=== PATIENT | female | born 1970 | race Caucasian/White ===

== ENCOUNTER 2024-02-25 08:14 | Outpatient (AMB) | payer OTHER, SELFPAY ==
[2024-02-25 08:22] VITALS: BP 108/72; PULSE 92; O2SAT 98; BMI 32.1
--- NOTE | 2024-02-25 08:22 | A.OFFPC_ITS ---
Vital Signs 02/25/24 08:22 Height 5 ft 5 in Weight 193 lb BMI 32.1 BP 108/72 Blood Pressure Location Lt brachial Position Sitting Pulse 92 Pulse Source Pulse Oximeter Pulse Oximetry (%) 98 Oxygen Delivery Method Room Air Intake Visit Reasons: annual exam Allergies sulfamethoxazole [From Bactrim] Adverse Reaction (Severe, Verified 02/25/24 08:38) Diarrhea trimethoprim [From Bactrim] Adverse Reaction (Severe, Verified 02/25/24 08:38) Diarrhea Medication List - Last Reconciled 02/25/24 by Nikunj Patel PA-C albuterol sulfate 2.5 mg inhalation Q6H albuterol sulfate 90 mcg/actuation (ProAir HFA) 2 puffs inhalation Q6H PRN 90 days atomoxetine 100 mg PO DAILY bupropion HCl XL 450 mg (3 x 150 mg) PO DAILY cetirizine 10 mg PO DAILY dextroamphetamine-amphetamine 25 mg ER (Adderall XR) 25 mg PO DAILY fluticasone propion-salmeterol 250-50 mcg/dose (Advair Diskus) 1 inh inhalation BID 30 days ibuprofen 800 mg PO TID PRN 30 days lorazepam 1 mg PO DAILY PRN 30 days montelukast 10 mg PO BEDTIME naproxen 500 mg PO BID PRN 10 days trazodone 100 mg PO BEDTIME PRN Tobacco use date assessed: 02/25/24 Dental Screening Dental Screen Date: 02/25/24 Did you have a dental visit in the last 12 months?: No Did you have a dental problem in the last 6 months where you did not have access to dental care?: No Was dental information given to patient?: Patient has dentist HPI annual exam HPI Details Trinity is a 54 y /o F here today for an annual physical. ? Pmhx significant for Depression, HTN, Anxiety, HLD. ? .. ? Depression/ Anxiety: She recently had some worsening depression and suicidal ideation to which he was hospitalized and had some med changes. She is in an IOP program to which she receives therapy on a daily basis. Now has a Also doing TMS and helping with her mental health. She is also now on Adderall for an ADHD diagnoses which has been helping her with her attention and focus. She mentioned she does not want to be on this medication for long-term due to risk of dependency ? REport her anxiety is still about the same, using lorazepam on a PRN basis though is looking to get off this medication .. HLD: Was on statin therapy previously though has ran out of this medication. She has lost significant amount of weight and will like to recheck her fasting lipids to see if there is still need for cholesterol medication. Colonoscopy: Needs colonoscopy- willing to go to [facility] Vaccine: UTD with FLu ,. UTD with Tdap ( 2022) .. 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 Medical History Screening for hypercholesterolemia Surgical History History of tonsillectomy History of foot surgery Family History Mother Substance use disorder Breast cancer Father Kidney malignancy Social History (Updated 02/25/24 @ 08:48 by Nikunj Patel PA-C) Housing: House Alcohol intake: current Patient Tobacco Use Status: Never used Tobacco Tobacco use type: Cigarette e-Cigarette/Vaping Use: Never Used Second Hand Smoke Exposure: No service: No Current occupational status: unemployed and retired Current occupational exposures/hazards: No Cognitive needs: No Hearing needs: No Vision needs: Yes Questionnaire PHQ-9 Over the last 2 weeks, how often have you been bothered by any of the following problems? 1. Little interest or pleasure in doing things: more than half the days 2. Feeling down, depressed, or hopeless: more than half the days 3. Trouble falling or staying asleep, or sleeping too much: not at all 4. Feeling tired or having little energy: more than half the days 5. Poor appetite or overeating: not at all 6. Feeling bad about yourself - or that you are a failure or have let yourself or your family down: more than half the days 7. Trouble concentrating on things, such as reading the newspaper or watching television: not at all 8. Moving or speaking so slowly that other people could have noticed. Or the opposite - being so fidgety or restless that you have been moving around a lot more than usual: not at all 9. Thoughts that you would be better off or of hurting yourself in some way: not at all Total score: 8 Depression Screening Interpretation: Positive Depression Screening Follow-up: Existing condition and In treatment Depression Screening Done: Yes 72709 - PHQ-9 Billing: Yes Source: Developed by Drs. Jak Posey, María Barron, Marino Gonzalez and colleagues, with an educational emmanuel from [employer]. Thrive Questionnaire Date Thrive assessed: 02/25/24 I am a: Patient What is your living situation today?: I have a steady place to live Within the past 12 months, did the food you bought not last and you didn't have the money to get more?: Never true Within the past 12 months, did you worry whether your food would run out before you got money to buy more?: Never true Do you have trouble paying for medicines?: No Do you have trouble getting transportation to medical appointments?: No Do you have trouble paying your heating and electricity bill?: No Do you have trouble taking care of your child, family member or friend?: No Do you have trouble with day-to-day activities such as bathing, preparing meals, shopping, managing finances, etc.?: No Are you currently unemployed and looking for a job?: No Are you interested in more education?: No Currently or been in a relationship where the following occur: No concerns reported THRIVE Score: 0 AUDIT C Alcohol Use Questionnaire (AUDIT-C) 1. How often do you have a drink containing alcohol?: 2-4 times a month 2. How many drinks containing alcohol do you have on a typical day when you are drinking?: 1 or 2 3. How often do you have six or more drinks on one occasion?: Never Total Score: 2 Score Reviewed/Action Taken: Yes NYDIA-7 AMB Questionnaire NYDIA-7 Date NYDIA - 7 assessed: 02/25/24 Feeling nervous, anxious, or on edge: 3 = Nearly every day Not being able to stop or control worryin = Nearly every day Worrying too much about different things: 3 = Nearly every day Trouble relaxin = Nearly every day Being so restless that it is hard to sit still: 3 = Nearly every day Becoming easily annoyed or irritable: 3 = Nearly every day Feeling afraid as if something awful might happen: 3 = Nearly every day Total NYDIA-7 score (0-4 normal; 5-9 mild; 10-14 moderate; 15-21 severe): 21 Source: Developed by Drs. Jak Posey, María Barron, Marino Gonzalez and colleagues, with an educational emmanuel from [employer]. NYDIA-7 Assessment Billing NYDIA-7 Assessment Tool: NYDIA-7 Assessment 60648 ACT Questionnaire In the past 4 weeks, how much of the time did your asthma keep you from getting as much done at work, school or at home?: A little of the time During the past 4 weeks, how often have you had shortness of breath?: Not at all During the past 4 weeks, how often did your asthma symptoms wake you up at night or earlier than usual in the morning?: Not at all During the past 4 weeks, how often have you had to use your rescue inhaler or nebulizer medication?: Once a week or less How would you rate your asthma control during the past 4 weeks?: Completely controlled ACT Interpretation: Negative Score: 23 Review of Systems Const Denies body aches, Denies chills, Denies excessive sweating, Denies fatigue, Denies fever(s) and Denies headache(s) Eyes Denies blurry vision ENT Denies dysphagia, Denies vertigo, Denies dizziness, Denies headache(s), Denies hearing loss and Denies tinnitus Card Denies chest pain, Denies chest pain with activity, Denies syncope, Denies irregular heart rhythm and Denies dyspnea Resp Denies chest congestion, Denies cough, Denies hemoptysis, Denies dyspnea and Denies wheezing GI Denies abdominal pain, Denies melena, Denies hematochezia, Denies coffee ground emesis, Denies dysphagia, Denies diarrhea, Denies nausea and Denies vomiting Denies urinary frequency, Denies dysuria, Denies urinary hesitancy and Denies urinary urgency Musc Denies arthralgias, Denies limited range of motion, Denies muscle cramps and Denies muscle weakness Skin/Breast Denies rash and Denies skin ulcer Neuro Denies Abnormal speech present, Denies confusion, Denies vertigo, Denies dizziness, Denies syncope, Denies headache(s), Denies memory loss and Denies seizure-like activity Psych Denies anxiety, Denies confusion, Denies depression, Denies memory loss, Denies panic attacks and Denies paranoia Endo Denies excessive sweating, Denies fatigue, Denies flushing, Denies polydipsia and Denies polyuria Aller/Immun Denies wheezing Physical exam (Primary Care) Vital Signs: Last Vital Signs Pulse 92 02/25/24 08:22 BP 108/72 02/25/24 08:22 Pulse Ox 98 02/25/24 08:22 Oxygen Delivery Method Room Air 02/25/24 08:22 BMI result Body Mass Index 32.1 Tobacco/Smoking Status: Tobacco use Status Tobacco use date assessed 02/25/24 02/25/24 08:27 Patient Tobacco Use Status Never used Tobacco 02/25/24 08:48 Tobacco use type Cigarette 02/25/24 08:48 e-Cigarette/Vaping Use Never Used 02/25/24 08:48 PHQ-9: PHQ-9 Score PHQ-9: Total score 8 02/25/24 09:07 Depression Screening Interpretation: Positive Depression Screening Follow-up: Existing condition and In treatment Thrive Assessment: Date of Thrive Assessment Date Thrive assessed 02/25/24 02/25/24 08:27 Currently or been in a relationship where the following occur: No concerns reported Const General: cooperative, comfortable, no acute distress, alert and awake; No confusion Orientation/consciousness: oriented to person, oriented to place, patient oriented x3 and No confusion HENMT Head: Yes normocephalic Ears: external ears normal and TM's normal bilaterally Face and sinus: No sinus tenderness Mouth: Normal oral and palatal mucosa present and tongue normal Teeth and gingiva: dentition normal and gingiva normal Throat: Yes posterior oropharynx normal, Yes tonsils normal and Yes uvula mi dline Eyes Conjunctivae: conjunctivae normal Sclerae: sclerae normal Pupils: Equal, round and reactive pupils present EOM: EOMs intact bilaterally Direct Ophthalmoscopy: No no photophobia Neck Neck: Yes no lymphadenopathy, No tender and Yes no JVD Thyroid: Thyroid normal Carotids: no bruits Chest Chest palpation & inspection: no tenderness Resp Effort & Inspection: normal respiratory effort, no audible wheezes, not labored and no stridor Auscultation: no crackles, no rales, no rhonchi and no wheezes Cardio Jugular venous distension: no JVD Rate: regular rate, not bradycardic and not tachycardic Rhythm: regular rhythm Bruits: no carotid bruits Peripheral pulses: Peripheral pulses 2+ throughout GI Inspection: Yes normal to inspection, No abdominal wall ecchymosis and No visible herniation Palpation (GI): Soft to palpation, nontender, no guarding, not rigid and No hepatosplenomegaly present Auscultation: normoactive bowel sounds General: Yes no CVA tenderness Back/Spine/Pelvis Back: no CVA tenderness and No back tenderness Cervical Spine: cervical ROM normal Thoracic/Lumbar Spine: thoracic and lumbar spine normal to inspection, straight leg raise negative bilaterally, No thoraco-lumbar ROM limited and No lumbar spinal tenderness Skin Lesions: no lesions Rashes: no rashes Wounds: no wounds Neuro General: oriented to person, oriented to place, patient oriented x3, CN's II-XI intact bilaterally and No confusion Cranial nerves: Yes Equal, round and reactive pupils present and Yes Normal accommodation reflex present Cognition (Neuro): normal cognition Speech: No Abnormal speech present Gait exam (Neuro): Normal gait present Motor exam (neuro): 5/5 motor strength present throughout Extrem Right upper extremity: full ROM; no cyanosis Left upper extremity: full ROM; no cyanosis Right lower extremity: no edema Left lower extremity: no edema Psych Appearance: grossly normal Mental Status: mental status grossly normal Affect: normal affect Attitude: cooperative Thought process: Normal thought process present Results AMB Urinalysis, Automated UA Leukoctes 1 Adan/uL Last Edit by BHARGAV Rice on 02/25/24 09:10 UA Nitrite Negative Last Edit by BHARGAV Rice on 02/25/24 09:10 UA Urobilinogen 0.2 mg/dL Last Edit by BHARGAV Rice on 02/25/24 09: 10 UA Protein 0 mg/dL Last Edit by BHARGAV Rice on 02/25/24 09:10 UA pH 6.0 Last Edit by BHARGAV Rice on 02/25/24 09:10 UA Blood 0 Tay/uL Last Edit by BHARGAV Rice on 02/25/24 09:10 UA Specific [place] 1.020 Last Edit by BHARGAV Rice on 02/25/24 09 :10 UA Ketone Negative Last Edit by BHARGAV Rice on 02/25/24 09:10 UA Bilirubin 0 mg/dL Last Edit by BHARGAV Rice on 02/25/24 09:10 UA Glucose 0 mg/dL Last Edit by BHARGAV Rice on 02/25/24 09:10 Results Reviewed Results Reviewed: Laboratory Last Values Urine pH (Auto) 6.0 02/25/24 08:27 Specific [place] (Auto) 1.020 02/25/24 08:27 Urine Protein (Auto) 0 mg/dL 02/25/24 08:27 Glucose (UA)(Auto) 0 mg/dL 02/25/24 08:27 Urine Ketones (Auto) Negative 02/25/24 08:27 Urine Blood (Auto) 0 Tay/uL 02/25/24 08:27 Urine Nitrite (Auto) Negative 02/25/24 08:27 Urine Bilirubin (Auto) 0 mg/dL 02/25/24 08:27 Urine Urobilinogen (Auto) 0.2 mg/dL 02/25/24 08:27 Leukocyte Esterase (Auto) 1 Adan/uL 02/25/24 08:27 Coding Level of Care Code Est Pt Prev Care 40-64y(86766) Diagnoses Annual physical exam Z00.00 Mixed hyperlipidemia E78.2 Hyperlipidemia type: mixed hyperlipidemia Mild persistent asthma without complication J45.30 Asthma complication type: uncomplicated Asthma persistence: persistent Asthma severity: mild Screening for diabetes mellitus (DM) Z13.1 Attention deficit hyperactivity disorder (ADHD), combined type F90.2 Attention deficit-hyperactivity disorder type: combined inattentive- hyperactive NYDIA (generalized anxiety disorder) F41.1 Additional Codes NYDIA-7 Assessment Billing - NYDIA-7 Assessment Tool: NYDIA-7 Assessment 19481 ([id number]) PHQ-9 - 64614 - PHQ-9 Billing: Yes ([id number]) Asthma Control Questionnaire - ACT Interpretation: Negative ([id number]) Assessment & Plan Assessment & Plan (1) Annual physical exam: Code(s): Z00.00 - Encounter for general adult medical examination without abnormal findings Category: Medical Plan: As per HPI (2) HLD (hyperlipidemia): Code(s): E78.5 - Hyperlipidemia, unspecified Category: Medical Qualifiers: Hyperlipidemia type: mixed hyperlipidemia Qualified Code(s): E78.2 - Mixed hyperlipidemia Plan: Patient has a history hyperlipidemia. Has been out of cholesterol medication for quite some time now. She has lost significant amount of weight since changing mental health medications and being retired. Will recheck lipid panel and if LDL 160 will consider restarting cholesterol medication. (3) Asthma: Code(s): J45.909 - Unspecified asthma, uncomplicated Category: Medical Qualifiers: Asthma complication type: uncomplicated Asthma persistence: persistent Asthma severity: mild Qualified Code(s): J45.30 - Mild persistent asthma, uncomplicated Plan: Patient has moderate persistent asthma to which she was using a maintenance inhaler though has been out of this medication for quite some time. Did have a bout of asthma that lasted a few weeks and required steroids and antibiotics (4) Screening for diabetes mellitus (DM): Code(s): Z13.1 - Encounter for screening for diabetes mellitus Category: Medical Plan: As per HPI (5) ADHD: Code(s): F90.9 - Attention-deficit hyperactivity disorder, unspecified type Category: Medical Qualifiers: Attention deficit-hyperactivity disorder type: combined inattentive- hyperactive Qualified Code(s): F90.2 - Attention-deficit hyperactivity disorder, combined type Plan: As per HPI patient now seeing a psychiatrist in his in an IOP. She has been chichi gnosed with ADHD and started stimulant medication which has been helping her with her attention and focus. (6) NYDIA (generalized anxiety disorder): Code(s): F41.1 - Generalized anxiety disorder Category: Medical Plan: As per HPI patient continues to have anxiety though has been much better since starting a new medication. Only uses lorazepam on a very limited p.r.n. basis Orders: Orders AMB Urinalysis Automated Today R39.9 - Unspecified symptoms and signs involving the genitourinary system Comprehensive [place]. Panel Fast Today Z13.1 - Encounter for screening for diabetes mellitus Lipid Panel Today E78.2 - Mixed hyperlipidemia TSH reflex Free T4 Today E78.2 - Mixed hyperlipidemia Complete Blood Count no Diff Today K21.9 - Gastro-esophageal reflux disease without esophagitis Medications: New albuterol sulfate 90 mcg/actuation (Ventolin HFA) 1 puff inhalation QID 3 inhalers 2RF 90 days J45.30 - Mild persistent asthma, uncomplicated amoxicillin-pot clavulanate 875-125 mg 1 tab PO BID 20 tabs 0RF 10 days J45.30 - Mild persistent asthma, uncomplicated prednisone take 3 tabs x 3 days , take 2 tabs x 3 days , take 1 tab x 3 days 10 mg PO DIRECTED 18 tabs 0RF 9 days J45.30 - Mild persistent asthma, uncomplicated Changed From fluticasone propion-salmeterol 250-50 mcg/dose (Advair Diskus) 1 inh inhalation BID 30 days 60 ea 0RF J45.909 - Unspecified asthma, uncomplicated To fluticasone propion-salmeterol 250-50 mcg/dose (Advair Diskus) 1 inh inhalation BID 3 inhalers 3RF 90 days J45.909 - Unspecified asthma, uncomplicated From albuterol sulfate 2.5 mg inhalation Q6H J45.30 - Mild persistent asthma, uncomplicated To albuterol sulfate 2.5 mg (3 mL) inhalation Q6H PRN 180 mL 2RF shortness of breath or wheezing 90 days J45.30 - Mild persistent asthma, uncomplicated Refilled montelukast 10 mg PO BEDTIME 90 tabs 3RF J45.30 - Mild persistent asthma, uncomplicated Discontinued albuterol sulfate 90 mcg/actuation (ProAir HFA) Discontinued Reason: Doctor's Order 2 puffs inhalation Q6H 90 days PRN 3 inhalers 0RF shortness of breath or wheezing J45.30 - Mild persistent asthma, uncomplicated
--- OUTSIDE RECORDS SUMMARY | 2024-02-25 08:22 | XMS_ITS | Continuity of Care Document ---
Author Name [facility] Organization [facility] Care Team Providers Care Retail Marketing Manager Name Role Phone [facility] Unavailable Unavailable Medications Combined list of outpatient medications from Department of Defense and [facility] Affairs facilities.Medications provided include 1) outpatient medications from the last 15 months, and 2) patient-reported medications. Medication Details Route Status Patient Instructions Prescription Expires Prescription Number Last Dispense Date Ordering Provider Order Date Order Qty Source AMPHETAMINE SALT COMBO (DEXTROAMPH ETAMINE/AMP HETAMINE), 10 MG, TABLET, ORAL, MALLINCKROD T PH, 100 ea. BOTTLE Active [id number] 2023 60 Pharmac y Data Transac tion Service Facilit y AMPHETAMINE SALT COMBO (DEXTROAMPH ETAMINE/AMP HETAMINE), 10 MG, TABLET, ORAL, MALLINCKROD T PH, 100 ea. BOTTLE Cancele d [id number] : 2023 0 Pharmac y Data Transac tion Service Facilit y AMPHETAMINE SALT COMBO (DEXTROAMPH ETAMINE/AMP HETAMINE), 10 MG, TABLET, ORAL, [place], 100 ea. BOTTLE Cancele d [id number] : 2023 0 Pharmac y Data Transac tion Service Facilit y AMPHETAMINE SALT COMBO (DEXTROAMPH ETAMINE/AMP HETAMINE), 10 MG, TABLET, ORAL, [place]EVA [place], 100 ea. BOTTLE Active [id number] 4 2023 90 Pharmac y Data Transac tion Service Facilit y AMPHETAMINE SALT COMBO (DEXTROAMPH ETAMINE/AMP HETAMINE), 10 MG, TABLET, ORAL, [place]EVA [place], 100 ea. BOTTLE Active [id number] 4 2023 75 Pharmac y Data Transac tion Service Facilit y AMPHETAMINE SALT COMBO (DEXTROAMPH ETAMINE/AMP HETAMINE), 10 MG, TABLET, ORAL, [place]EVA [place], 100 ea. BOTTLE Cancele d [id number] : 2023 0 Pharmac y Data Transac tion Service Facilit y AMPHETAMINE SALT COMBO (DEXTROAMPH ETAMINE/AMP HETAMINE), 10 MG, TABLET, ORAL, [place]EVA [place], 100 ea. BOTTLE Active [id number] 2023 75 Pharmac y Data Transac tion Service Facilit y AMPHETAMINE SALT COMBO (DEXTROAMPH ETAMINE/AMP HETAMINE), 10 MG, TABLET, ORAL, [place]A [place], 100 ea. BOTTLE Cancele d [id number] : 2023 0 Pharmac y Data Transac tion Service Facilit y AMPHETAMINE SALT COMBO (DEXTROAMPH ETAMINE/AMP HETAMINE), 5 MG, TABLET, ORAL, EW[place], 100 ea. BOTTLE Cancele d [id number] : 2023 0 Pharmac y Data Transac tion Service Facilit y ATOMOXETINE HCL (atomoxetin e HCl), 100 MG, CAPSULE, ORAL, BUREL PHARMACEU, 30 ea. BOTTLE Cancele d [id number] 4 [id number] : 2023 0 Pharmac y Data Transac tion Service Facilit y ATOMOXETINE HCL (atomoxetin e HCl), 100 MG, CAPSULE, ORAL, CAMBER PHARMACE, 30 ea. BOTTLE Cancele d [id number] : 2023 0 Pharmac y Data Transac tion Service Facilit y ATOMOXETINE HCL (atomoxetin e HCl), 100 MG, CAPSULE, ORAL, CAMBER PHARMACE, 30 ea. BOTTLE Active [id number] 2023 30 Pharmac y Data Transac tion Service Facilit y ATOMOXETINE HCL (atomoxetin e HCl), 100 MG, CAPSULE, ORAL, CAMBER PHARMACE, 30 ea. BOTTLE Active [id number] 2023 30 Pharmac y Data Transac tion Service Facilit y ATOMOXETINE HCL (atomoxetin e HCl), 100 MG, CAPSULE, ORAL, CAMBER PHARMACE, 30 ea. BOTTLE Active [id number] 2023 30 Pharmac y Data Transac tion Service Facilit y ATOMOXETINE HCL (atomoxetin e HCl), 100 MG, CAPSULE, ORAL, CAMBER PHARMACE, 30 ea. BOTTLE Active [id number] 4 2023 30 Pharmac y Data Transac tion Service Facilit y ATOMOXETINE HCL (atomoxetin e HCl), 100 MG, CAPSULE, ORAL, CAMBER PHARMACE, 30 ea. BOTTLE Active [id number] 2023 30 Pharmac y Data Transac tion Service Facilit y ATOMOXETINE HCL (atomoxetin e HCl), 100 MG, CAPSULE, ORAL, 'S LAB, 30 ea. BOTTLE Cancele d [id number] : 2022 0 Pharmac y Data Transac tion Service Facilit y ATOMOXETINE HCL (atomoxetin e HCl), 100 MG, CAPSULE, ORAL, RISING PHARM, 30 ea. BOTTLE Cancele d [id number] : 2023 0 Pharmac y Data Transac tion Service Facilit y BUPROPION XL (bupropion HCl), 150 MG, TAB ER 24H, ORAL, [facility], 90 ea. BOTTLE Active [id number] 4 2023 60 Pharmac y Data Transac tion Service Facilit y BUPROPION XL (bupropion HCl), 150 MG, TAB ER 24H, ORAL, [facility], 90 ea. BOTTLE Cancele d [id number] : 2023 0 Pharmac y Data Transac tion Service Facilit y BUPROPION XL (bupropion HCl), 150 MG, TAB ER 24H, ORAL, [facility], 90 ea. BOTTLE Active [id number] 2023 60 Pharmac y Data Transac tion Service Facilit y BUPROPION XL (bupropion HCl), 150 MG, TAB ER 24H, ORAL, CIPLA [employer] 500 ea. BOTTLE Cancele d [id number] : 2022 0 Pharmac y Data Transac tion Service Facilit y BUPROPION XL (bupropion HCl), 150 MG, TAB ER 24H, ORAL, LUPIN PHARMACEU, 90 ea. BOTTLE Active [id number] 2023 60 Pharmac y Data Transac tion Service Facilit y BUPROPION XL (bupropion HCl), 150 MG, TAB ER 24H, ORAL, LUPIN PHARMACEU, 90 ea. BOTTLE Cancele d [id number] : 2023 0 Pharmac y Data Transac tion Service Facilit y BUPROPION XL (bupropion HCl), 150 MG, TAB ER 24H, ORAL, LUPIN PHARMACEU, 90 ea. BOTTLE Cancele d [id number] : 2023 0 Pharmac y Data Transac tion Service Facilit y BUPROPION XL (bupropion HCl), 150 MG, TAB ER 24H, ORAL, LUPIN PHARMACEU, 90 ea. BOTTLE Active [id number] 2023 60 Pharmac y Data Transac tion Service Facilit y BUPROPION XL (bupropion HCl), 150 MG, TAB ER 24H, ORAL, LUPIN PHARMACEU, 90 ea. BOTTLE Cancele d [id number] : 2023 0 Pharmac y Data Transac tion Service Facilit y BUPROPION XL (bupropion HCl), 150 MG, TAB ER 24H, ORAL, LUPIN PHARMACEU, 90 ea. BOTTLE Active [id number] 2023 60 Pharmac y Data Transac tion Service Facilit y BUPROPION XL (bupropion HCl), 150 MG, TAB ER 24H, ORAL, LUPIN PHARMACEU, 90 ea. BOTTLE Active [id number] 4 2023 60 Pharmac y Data Transac tion Service Facilit y BUPROPION XL (bupropion HCl), 150 MG, TAB ER 24H, ORAL, [place] PHA, 500 ea. BOTTLE Active [id number] 2023 60 Pharmac y Data Transac tion Service Facilit y LORAZEPAM (lorazepam) , 0.5 MG, TABLET, ORAL, AUROBINDO PHARM, 500 ea. BOTTLE Active [id number] 2023 30 Pharmac y Data Transac tion Service Facilit y LORAZEPAM (lorazepam) , 0.5 MG, TABLET, ORAL, AUROBINDO PHARM, 500 ea. BOTTLE Active [id number] 2023 30 Pharmac y Data Transac tion Service Facilit y LORAZEPAM (lorazepam) , 0.5 MG, TABLET, ORAL, [place]EVA [place], 500 ea. BOTTLE Cancele d [id number] : 2023 0 Pharmac y Data Transac tion Service Facilit y TRAZODONE HCL (trazodone HCl), 100 MG, TABLET, ORAL, AUROBINDO PHARM, 100 ea. BOTTLE Active [id number] 4 2023 60 Pharmac y Data Transac tion Service Facilit y TRAZODONE HCL (trazodone HCl), 100 MG, TABLET, ORAL, AUROBINDO PHARM, 100 ea. BOTTLE Cancele d [id number] : 2023 0 Pharmac y Data Transac tion Service Facilit y TRAZODONE HCL (trazodone HCl), 100 MG, TABLET, ORAL, AUROBINDO PHARM, 100 ea. BOTTLE Active [id number] 2023 60 Pharmac y Data Transac tion Service Facilit y TRAZODONE HCL (trazodone HCl), 100 MG, TABLET, ORAL, AUROBINDO PHARM, 100 ea. BOTTLE Cancele d [id number] : 2023 0 Pharmac y Data Transac tion Service Facilit y TRAZODONE HCL (trazodone HCl), 100 MG, TABLET, ORAL, AUROBINDO PHARM, 100 ea. BOTTLE Active [id number] 2023 60 Pharmac y Data Transac tion Service Facilit y TRAZODONE HCL (trazodone HCl), 100 MG, TABLET, ORAL, AUROBINDO PHARM, 100 ea. BOTTLE Active [id number] 4 2023 60 Pharmac y Data Transac tion Service Facilit y TRAZODONE HCL (trazodone HCl), 100 MG, TABLET, ORAL, [place]EVA [place], 100 ea. BOTTLE Cancele d [id number] : 2022 0 Pharmac y Data Transac tion Service Facilit y TRAZODONE HCL (TRAZODONE HCL), 100MG, TABLET, ORAL, APOTEX SYLVIA, 100 ea. BOTTLE Active [id number] 4 2023 60 Pharmac y Data Transac tion Service Facilit y Allergies, Adverse Reactions, Alerts Combined list of allergies from Department of Defense and Veterans Affairs facilities. It does not include entries that were removed or entered in error. Substance Category Reaction Severity Reaction type Status Date Reported Comments Source No Known Allergies Drug allergy (disorder) [place] [facility] [place] of available immunizations from the Department of Defense and Veterans Affairs facilities. Immunization Series Date Given Administered By Site Reaction Lot Number CVX Code Drug Utility Tender Carding Status Comments Source COVID-19, mRNA, LNP-S, PF, 100 mcg or 50 mcg dose 2020 [employer], [employer] (MOD) Not Given COVID-19, mRNA, LNP-S, PF, 100 mcg or 50 mcg dose [facility] COVID-19, mRNA, LNP-S, PF, 100 mcg or 50 mcg dose 2020 [employer], [employer] (MOD) Not Given COVID-19, mRNA, LNP-S, PF, 100 mcg or 50 mcg dose [facility] Social History Combined list of available smoking, tobacco, and other social history from Department of Defense and Veterans Affairs facilities. Social History Type Response Date Comment [facility] e This section is an empty social history section. [facility]
--- OUTSIDE RECORDS SUMMARY | 2024-02-25 08:23 | XMS_ITS | Data Portability ---
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 20 2024 01:00P M Santosh Stokes MD Not available Not available Not available Lab urinalysi s, dipstick 2017 018 [email or web address] In-Office Order, Internal Use Only DO Not Attach Compendium DO Not Attach Compendium, Do Not Delete/merge, [id number] 04/27/2017 15:19:30 pap, IG + HPV 2017 018 [facility], [address] [place] [address], [id number] 05/11/2017 13:42:27 fecal occult blood, stool 2017 018 HA In-Office Order, Internal Use Only DO Not Attach Compendium DO Not Attach Compendium, Do Not Delete/merge, [id number] 04/28/2017 17:27:47 pap, IG + HPV 2018 019 [facility], [address] [place], [id number] 03/30/2018 14:01:33 lh + FSH, serum 2018 019 [facility], [address] [place], [address] 06/26/2018 11:23:17 TSH, serum or plasma 2018 019 [facility], [address] [place] [address], [id number] 06/26/2018 11:23:17 prolactin , serum 2018 019 [facility], [address] [place] [address], [id number] 06/26/2018 11:23:18 urinalysi s, dipstick 2018 019 rberke In-Office Order, Internal Use Only DO Not Attach Compendium DO Not Attach Compendium, Do Not Delete/merge, [id number] 08/30/2018 15:17:03 pap, IG + reflex HPV 2018 019 [facility], [address] [place] [address], [id number] 09/01/2018 15:05:37 fecal occult blood, stool 2018 019 rberke In-Office Order, Internal Use Only DO Not Attach Compendium DO Not Attach Compendium, Do Not Delete/merge, [id number] 08/30/2018 15:17:02 pap, IG + HPV 2021 022 [facility], [address] [place] [address], [id number] 05/03/2021 07:01:02 urinalysi s, dipstick 2021 022 rberke In-Office Order, Internal Use Only DO Not Attach Compendium DO Not Attach Compendium, Do Not Delete/merge, [id number] 04/29/2021 15:30:12 fecal occult blood, stool 2021 022 HA In-Office Order, Internal Use Only DO Not Attach Compendium DO Not Attach Compendium, Do Not Delete/merge, [id number] 04/29/2021 15:34:23 urinalysi s, dipstick 2023 024 [email or web address] In-Office Order, Internal Use Only DO Not Attach Compendium DO Not Attach Compendium, Do Not Delete/merge, [id number] 01/18/2024 14:12:43 pap, IG + HPV 2023 024 [facility], [address] [place] [address], [id number] 01/24/2024 11:50:39 CBC w/ auto diff 2023 [facility], [address] [place] [address], [id number] 01/18/2024 14:12:57 lipid panel, serum 2023 [facility], [address] [place] [address], [id number] 01/18/2024 14:12:57 CMP, serum or plasma 2023 [facility], [address] [place] [address], [id number] 01/18/2024 14:12:57 vitamin D, 25-hydrox y, total, serum 2023 [facility], [address] [place] [address], [id number] 01/18/2024 14:12:57 TSH, serum or plasma 2023 [facility], [address] [place] [address], [id number] 02/17/2024 04:05:00 hemoglobi n, gastroint estinal, stool 2023 [email or web address] In-Office Order, Internal Use Only DO Not Attach Compendium DO Not Attach Compendium, Do Not Delete/merge, [id number] 01/18/2024 14:12:43 Referral None recorded. Procedures None recorded. Surgeries None recorded. Imaging MAMMO, screening , digital, bilateral - If dense breasts, please proceed with bilateral breast screening ultrasoun d. 2017 018 [email or web address] [facility], [address] [place] [address], [id number], 04/30/2017 13:05:21 MAMMO, screening , digital, bilateral - If dense breasts (>50%), please proceed with bilateral breast screening ultrasoun d. 2018 019 [facility], [address] [place], [address], 09/07/2018 13:07:25 MAMMO, screening , digital, bilateral - If dense breasts (>50%), please proceed with bilateral breast screening ultrasoun d. 2021 022 susan [facility], [address] [place], [address], 05/03/2021 12:56:49 MAMMO, screening , digital, bilateral - If dense breasts (>50%), please proceed with bilateral breast screening ultrasoun d. 2023 024 [facility], [address] [place], [address], 01/18/2024 15:05:21 Medication Orders None recorded. Patient TargetsNo targets recorded. Patient Instructions Encounter Date Encounter Id Patient Instructions Last Modified By Organization Details Last Modified Time 04/27/2017 [id number] self breast exam education rberke Not available 04/27/2017 15:19:30 tips to help you stay healthy rberke Not available 04/27/2017 15:19:31 03/29/2018 [id number] body mass index: care instructions rberke Not available 03/29/2018 13:35:33 learning about healthy weight rberke Not available 03/29/2018 13:35:33 08/30/2018 [id number] self breast exam education rberke Not available 08/30/2018 15:17:02 tips to help you stay healthy rberke Not available 08/30/2018 15:17:02 Reason for Referral None Reported. Results Created Date Observation Date Name Description Value Unit Range Abnormal Flag Note LastModifiedBy Organization Detail LastModifiedTime 08/30/2018 urina lysis , dipst ick Interpretati on negati ve Not Available In-Office Order Internal Use Only DO Not Attach Compendium DO Not Attach Compendium, Do Not Delete/merge, [id number] 08/30/2018 14:42:16 08/30/2018 urina lysis , dipst ick Leukocytes Negati ve Not Available In-Office Order Internal Use Only DO Not Attach Compendium DO Not Attach Compendium, Do Not Delete/merge, [id number] 08/30/2018 14:42:08/30/2018 urina lysis , dipst ick Nitrite negati ve Not Available In-Office Order Internal Use Only DO Not Attach Compendium DO Not Attach Compendium, Do Not Delete/merge, 08/30/2018 14:42:08/30/2018 urina lysis , dipst ick Urobilinogen Normal : 0.2 mg/dl Not Available In-Office Order Internal Use Only DO Not Attach Compendium DO Not Attach Compendium, Do Not Delete/merge, 08/30/2018 14:42:08/30/2018 urina lysis , dipst ick Protein Negati ve Not Available In-Office Order Internal Use Only DO Not Attach Compendium DO Not Attach Compendium, Do Not Delete/merge, 08/30/2018 14:42:08/30/2018 urina lysis , dipst ick pH 5.0 Not Available In-Office Order Internal Use Only DO Not Attach Compendium DO Not Attach Compendium, Do Not Delete/merge, 08/30/2018 14:42:08/30/2018 urina lysis , dipst ick Blood Negati ve Not Available In-Office Order Internal Use Only DO Not Attach Compendium DO Not Attach Compendium, Do Not Delete/merge, 08/30/2018 14:42:08/30/2018 urina lysis , dipst ick Ketone Negati ve Not Available In-Office Order Internal Use Only DO Not Attach Compendium DO Not Attach Compendium, Do Not Delete/merge, 08/30/2018 14:42:08/30/2018 urina lysis , dipst ick Bilirubin Negati ve Not Available In-Office Order Internal Use Only DO Not Attach Compendium DO Not Attach Compendium, Do Not Delete/merge, 08/30/2018 14:42:08/30/2018 urina lysis , dipst ick Glucose Negati ve Not Available In-Office Order Internal Use Only DO Not Attach Compendium DO Not Attach Compendium, Do Not Delete/merge, 08/30/2018 14:42:08/30/2018 urina lysis , dipst ick Appearance Clear Not Available In-Offi ce Order Internal Use Only DO Not Attach Compendium DO Not Attach Compendium, Do Not Delete/merge, 08/30/2018 14:42:16 08/30/2018 urina lysis , dipst ick Color Yellow Not Available In-Office Order Internal Use Only DO Not Attach Compendium DO Not Attach Compendium, Do Not Delete/merge, 08/30/2018 14:42:16 08/30/2018 fecal occul t blood , stool Occult Blood negati ve Not Available In-Office Order Internal Use Only DO Not Attach Compendium DO Not Attach Compendium, Do Not Delete/merge, 08/30/2018 14:42:16 04/27/2017 urina lysis , dipst ick Interpretati on negati ve Not Available In-Office Order Internal Use Only DO Not Attach Compendium DO Not Attach Compendium, Do Not Delete/merge, 04/27/2017 14:50:04 04/27/2017 urina lysis , dipst ick Leukocytes Negati ve Not Available In-Office Order Internal Use Only DO Not Attach Compendium DO Not Attach Compendium, Do Not Delete/merge, 04/27/2017 14:50:04 04/27/2017 urina lysis , dipst ick Nitrite negati ve Not Available In-Office Order Internal Use Only DO Not Attach Compendium DO Not Attach Compendium, Do Not Delete/merge, 04/27/2017 14:50:04 04/27/2017 urina lysis , dipst ick Urobilinogen Normal : 0.2 mg/dl Not Available In-Office Order Internal Use Only DO Not Attach Compendium DO Not Attach Compendium, Do Not Delete/merge, 04/27/2017 14:50:04 04/27/2017 urina lysis , dipst ick Protein Negati ve Not Available In-Office Order Internal Use Only DO Not Attach Compendium DO Not Attach Compendium, Do Not Delete/merge, 04/27/2017 14:50:04 04/27/2017 urina lysis , dipst ick pH 5.0 Not Available In-Office Order Internal Use Only DO Not Attach Compendium DO Not Attach Compendium, Do Not Delete/merge, 04/27/2017 14:50:04 04/27/2017 urina lysis , dipst ick Blood Negati ve Not Available In-Office Order Internal Use Only DO Not Attach Compendium DO Not Attach Compendium, Do Not Delete/merge, 04/27/2017 14:50:04 04/27/2017 urina lysis , dipst ick Ketone Negati ve Not Available In-Office Order Internal Use Only DO Not Attach Compendium DO Not Attach Compendium, Do Not Delete/merge, 04/27/2017 14:50:04 04/27/2017 urina lysis , dipst ick Bilirubin Negati ve Not Available In-Office Order Internal Use Only DO Not Attach Compendium DO Not Attach Compendium, Do Not Delete/merge, 04/27/2017 14:50:04 04/27/2017 urina lysis , dipst ick Glucose Negati ve Not Available In-Office Order Internal Use Only DO Not Attach Compendium DO Not Attach Compendium, Do Not Delete/merge, 04/27/2017 14:50:04 04/27/2017 urina lysis , dipst ick Appearance Clear Not Available In-Offi ce Order Internal Use Only DO Not Attach Compendium DO Not Attach Compendium, Do Not Delete/merge, 04/27/2017 14:50:04 04/27/2017 urina lysis , dipst ick Color Yellow Not Available In-Office Order Internal Use Only DO Not Attach Compendium DO Not Attach Compendium, Do Not Delete/merge, 04/27/2017 14:50:04 04/27/19 18 05/11/2017 pap, IG + HPV report abnormal THINP REP TIS PAP AND HPV mRNA E6/E7 REFLE X HPV 16,18 /45 Lab: TY3 CLINI LEANN INFOR MATIO N: None given LMP: NI prev. Pap: NONE GIVEN prev. Bx: NI SOURC E: Cervi x, Endoc ervix STATE MENT OF ADEQU ACY: Satis facto ry for evalu ation . Endoc ervic al/tr ansfo rmati on zone compo nent prese nt. GENER AL CATEG ORIZA TION: EPITH ELIAL CELL ABNOR MALIT Y INTER PRETA TION/ RESUL T: Atypi leann Squam ous Cells of Undet ermin ed Signi fican ce (ASC- US) COMME NT: This Pap test has been evalu ated with compu ter melissa breanna techn ology . CYTOT ECHNO LOGIS T: KF, CT( CP) CT scree lázaro locat ion: [facility] [address] [facility], [place] [id number] PATHO LOGIS T: Saver hue george M.D., (elec troni c signa ture) [facility] [phone] For quest ions conta ct [facility] t Servi maldonado at [phone] EXPLA NATOR Y NOTE: The Pap is a scree lázaro test for cervi leann cance r. It is not a diagn ostic test and is subje ct to false negat albert and false posit albert resul ts. It is most relia ble when a satis facto ry sampl e, regul eliazar obtai ponce, is submi tted with relev ant clini leann findi ngs and histo ry, and when the Pap resul t is evalu ated along with histo nicolasa and curre nt clini leann infor roe rodríguez Lab: NL1 HPV mRNA E6/E7 REFLE X HPV 16, 18/45 HPV mRNA E6/E7 Not Detec breanna Refer ence Range : Not Detec breanna This test was perfo rmed using the APTIM A HPV Assay ([employer] . This assay detec ts E6/E7 viral messe nger RNA (mRNA ) from 14 high- risk HPV types (16,1 8,31, 33,35 ,39,4 5,51, 52,56 ,58,5 9,66, 68). THINP REP TIS PAP AND HPV mRNA E6/E7 REFLE X HPV 16,18 /45 PERFO RMING SITE: NL1 [facility] [address] ,[place] [address] Labor atory Direc tor: ANA DUARTE MD , CLIA: [id number] TY[facility] [address] [facility] [place] [address] Labor atory Direc tor: BRADF ORD LAM RESENDEZ MD, CLIA: [id number] Not Available [facility] [address] [facility], [place], [address] 05/11/2017 13:42:27 04/28/19 18 04/28/2017 fecal occul t blood , stool Occult Blood negati ve Not Available In-Office Order Internal Use Only DO Not Attach Compendium DO Not Attach Compendium, Do Not Delete/merge, [id number] 04/27/2017 14:50:04 03/29/19 19 03/30/2018 pap, IG + HPV report GYNEC OLOGI LEANN CYTOL OGY REPOR T A. THINP REP PAP (IMAG ER) WITH HPV SCREE N AND REFLE X TO HPV 16,18 /45: SPECI MEN ADEQU ACY: SATIS FACTO RY FOR EVALU ATION ; ENDOC ERVIC AL/TR ANSFO RMATI ON ZONE COMPO NENT PRESE NT. INTER PRETA TION: NEGAT ALBERT FOR INTRA EPITH ELIAL LESIO N OR MALIG EBONY . Elect barry moeller Naima d Out By: NORTH MORGAN( CP) CLINI LEANN INFOR MATIO N: LMP: NI R87.6 10 Biops y Date: NI Numbe r of vials /slid es submi tted: 1 Speci men sourc e: CERVI X/END OCERV IX Abnor mal Pap Date: NI Autom ated presc reeni ng of all liqui d based speci mens is perfo rmed by the ThinP rep Imagi ng Syste m, unles s other [place] d. The Pap test is a scree lázaro test with an inher ent false negat albert rate. [facility] ng [facility] , [address], [place], [place] CLIA [id number]. Not Available [facility] [address] [place] [address], [id number] 03/30/2018 14:01:33 03/29/1903/30/2018 pap, IG + HPV HPV result NEGATI VE negati ve APTIM A HPV assay detec ts 14 high risk HPV types (HPV 16,18 ,31,3 3,35, 39,45 , 51,52 ,56,5 8,59, 66,68 ). The assay is FDA appro alcon for testi ng ThinP rep liqui d Pap vials but not FDA appro alcon for detec ting HPV in SureP ath liqui d Pap speci mens. In-ho use valid ation has shown the assay can detec t all HPV types from this sourc e. Not Available [address], [address] 03/30/2018 14:01:33 06/26/1906/26/2018 TSH, serum or plasm a TSH, highly sensitive 2.42 mIU/L 0.35-4 .94 Not Available [facility] [address] [place] [address], [id number] 06/26/2018 11:23:17 06/26/1906/26/2018 FSH (foll icle- stimu latin g hormo ne), serum follicle stimulating hormone (FSH) 32.8 mIU/m L Refer ence Range s ----- ----- ----- ----- ----- ----- ---- Patience lly Menst ruati ng Femal es Folli cular phase : 3.0-8 .1 Mid-C ycle Peak: 2.6-1 6.7 Lutea l phase : 1.4-5 .5 Post- menop ausal Femal es: 26.7- 133.4 Not Available [facility] [address] [place], [address] 06/26/2018 11:23:17 06/26/1906/26/2018 lh (lute inizi ng hormo ne), serum luteinizing hormone (LH) 17.5 mIU/m L Refer ence Range s ----- ----- ----- ----- ----- ----- ---- Patience lly Menst ruati ng Femal es Folli cular : 1.8-1 1.8 Mid Cycle : 7.6-8 9.1 Lutea l: 0.6-1 4.0 Post menop ausal : 5.2-6 2.0 Not Available [facility] [address] [place], [address] 06/26/2018 11:23:18 06/26/19 19 06/26/2018 prola ctin, serum prolactin 9.2 NG/mL 5.2-26 .5 Not Available [facility] [address] [place], [address] 06/26/2018 11:23:18 08/31/19 19 09/01/2018 pap, IG + refle x HPV report GYNEC OLOGI LEANN CYTOL OGY LENARD T Purvi. THINP REP PAP TEST WITH HPV REFLE X: SPECI MEN ADEQU ACY: SATIS FACTO RY FOR EVALU ATION ; ENDOC ERVIC AL/TR ANSFO RMATI ON ZONE COMPO NENT PRESE NT. INTER PRETA TION: NEGAT ALBERT FOR INTRA EPITH ELIAL LESHUE Pal[place] OR YMEI BECK . Elect barry moeller Naima d Out By: NORTH GONZALEZ( CP) CLINI LEANN INFOR MATIO N: LMP: NI Z01.4 19 Biops y Date: NI Numbe r of vials /slid es submi tted: 1 Speci men sourc e: CERVI X/END OCERV IX Abnor mal Pap Date: NI Autom ated presc reeni ng of all liqui d based speci mens is perfo rmed by the ThinP rep Imagi ng Saulo msatish other [place] d. The Pap test is a scree lázaro test with an inher ent false negat albert rate. Testi ng [facility] , [address] [place] [address] CLIA [id number] CL-08 [id number]. Not Available [facility] [address] [place], [address] 09/01/2018 15:05:37 04/29/19 22 04/29/2021 fecal occul t blood , stool Occult Blood negati ve Not Available In-Office Order Internal Use Only DO Not Attach Compendium DO Not Attach Compendium, Do Not Delete/merge, 04/29/2021 14:28:31 04/29/19 22 04/29/2021 urina lysis , dipst ick Interpretati on negati ve Not Available In-Office Order Internal Use Only DO Not Attach Compendium DO Not Attach Compendium, Do Not Delete/merge, 04/29/2021 14:28:31 04/29/19 22 04/29/2021 urina lysis , dipst ick Leukocytes Negati ve Not Available In-Office Order Internal Use Only DO Not Attach Compendium DO Not Attach Compendium, Do Not Delete/merge, 04/29/2021 14:28:31 04/29/19 22 04/29/2021 urina lysis , dipst ick Nitrite negati ve Not Available In-Office Order Internal Use Only DO Not Attach Compendium DO Not Attach Compendium, Do Not Delete/merge, 04/29/2021 14:28:31 04/29/19 22 04/29/2021 urina lysis , dipst ick Urobilinogen Normal : 0.2 mg/dl Not Available In-Office Order Internal Use Only DO Not Attach Compendium DO Not Attach Compendium, Do Not Delete/merge, 04/29/2021 14:28:31 04/29/19 22 04/29/2021 urina lysis , dipst ick Protein Negati ve Not Available In-Office Order Internal Use Only DO Not Attach Compendium DO Not Attach Compendium, Do Not Delete/merge, 04/29/2021 14:28:31 04/29/19 22 04/29/2021 urina lysis , dipst ick pH 5.0 Not Available In-Office Order Internal Use Only DO Not Attach Compendium DO Not Attach Compendium, Do Not Delete/merge, 04/29/2021 14:28:04/29/19 22 04/29/2021 urina lysis , dipst ick Blood Negati ve Not Available In-Office Order Internal Use Only DO Not Attach Compendium DO Not Attach Compendium, Do Not Delete/merge, [id number] 04/29/2021 14:28:31 04/29/19 22 04/29/2021 urina lysis , dipst ick Ketone Negati ve Not Available In-Office Order Internal Use Only DO Not Attach Compendium DO Not Attach Compendium, Do Not Delete/merge, [id number] 04/29/2021 14:28:31 04/29/19 22 04/29/2021 urina lysis , dipst ick Bilirubin Negati ve Not Available In-Office Order Internal Use Only DO Not Attach Compendium DO Not Attach Compendium, Do Not Delete/merge, [id number] 04/29/2021 14:28:31 04/29/19 22 04/29/2021 urina lysis , dipst ick Glucose Negati ve Not Available In-Office Order Internal Use Only DO Not Attach Compendium DO Not Attach Compendium, Do Not Delete/merge, [id number] 04/29/2021 14:28:31 04/29/19 22 04/29/2021 urina lysis , dipst ick Appearance Clear Not Available In-Offi ce Order Internal Use Only DO Not Attach Compendium DO Not Attach Compendium, Do Not Delete/merge, [id number] 04/29/2021 14:28:31 04/29/19 22 04/29/2021 urina lysis , dipst ick Color Yellow Not Available In-Office Order Internal Use Only DO Not Attach Compendium DO Not Attach Compendium, Do Not Delete/merge, [id number] 04/29/2021 14:28:31 04/30/19 22 04/30/2021 HPV MRNA E6/E7 HPV MRNA E6/E7 NEGATI VE negati ve APTIM A HPV assay detec ts 14 high risk HPV types (HPV 16,18 ,31,3 3,35, 39,45 ,51,5 2,56, 58,59 ,66,6 8). The assay is FDA appro alcon for testi ng ThinP rep liqui d Pap vials but not FDA appro alcon for detec ting HPV in SureP ath liqui d Pap speci mens. In-ho use valid ation has shown the assay can detec t all HPV types from this sour e Not Available [facility] [address] [place], [address] 05/03/2021 07:00:59 04/30/19 22 04/30/2021 THINP REP PAP TEST (IMAG ER), HPV SCREE N, REFLE X HPV 16,18 /45 report REPORT Final Gynec ologi leann Cytol ogy Repor t ----- ----- ----- ----- ----- ----- ----- ----- ----- ----- ----- ----- ThinP rep Pap Test, HPV Scree n, Refle x HPV Genot ype SPECI MEN ADEQU ACY: SATIS FACTO RY FOR EVALU ATION . INTER PRETA TION: NEGAT ALBETR FOR INTRA EPITH JENIFFER [place] OR YEMI BECK . Elect barry Mcnamara d: Lala Dunn, [place] (ASCP ) ----- ----- ----- ----- ----- ----- ----- ----- ----- ----- ----- ----- CLINI LEANN ENE GALARZA N: LMP: NG Speci men Sour e: Cervi x, Endoc ervix HPV RESUL TS: HPV mRNA E6/E7 [id number] Appro alcno: 04/30 Negat albert REF RANGE : Negat albert CPT Codes : 80587 ICD Codes : Z01.4 19 Not Available [facility] [address] [place], [address] 05/03/2021 07:01:02 01/18/20 24 01/18/2024 hemog lobin , gastr ointe anil l, stool Occult Blood negati ve Not Available In-Office Order Internal Use Only DO Not Attach Compendium DO Not Attach Compendium, Do Not Delete/merge, [id number] 01/18/2024 13:14:03 01/18/20 24 01/18/2024 urina lysis , dipst ick Interpretati on negati ve Not Available In-Office Order Internal Use Only DO Not Attach Compendium DO Not Attach Compendium, Do Not Delete/merge, [id number] 01/18/2024 13:14:03 01/18/20 24 01/18/2024 urina lysis , dipst ick Leukocytes Negati ve Not Available In-Office Order Internal Use Only DO Not Attach Compendium DO Not Attach Compendium, Do Not Delete/merge, [id number] 01/18/2024 13:14:01/18/20 24 01/18/2024 urina lysis , dipst ick Nitrite negati ve Not Available In-Office Order Internal Use Only DO Not Attach Compendium DO Not Attach Compendium, Do Not Delete/merge, [id number] 01/18/2024 13:14:01/18/20 24 01/18/2024 urina lysis , dipst ick Urobilinogen Normal : 0.2 mg/dl Not Available In-Office Order Internal Use Only DO Not Attach Compendium DO Not Attach Compendium, Do Not Delete/merge, [id number] 01/18/2024 13:14:03 01/18/20 24 01/18/2024 urina lysis , dipst ick Protein Negati ve Not Available In-Office Order Internal Use Only DO Not Attach Compendium DO Not Attach Compendium, Do Not Delete/merge, [id number] 01/18/2024 13:14:01/18/20 24 01/18/2024 urina lysis , dipst ick pH 5.0 Not Available In-Office Order Internal Use Only DO Not Attach Compendium DO Not Attach Compendium, Do Not Delete/merge, [id number] 01/18/2024 13:14:03 01/18/20 24 01/18/2024 urina lysis , dipst ick Blood Negati ve Not Available In-Office Order Internal Use Only DO Not Attach Compendium DO Not Attach Compendium, Do Not Delete/merge, [id number] 01/18/2024 13:14:01/18/20 24 01/18/2024 urina lysis , dipst ick Specific [place] 1.000 Not Available In-Off ice Order Internal Use Only DO Not Attach Compendium DO Not Attach Compendium, Do Not Delete/merge, [id number] 01/18/2024 13:14:01/18/20 24 01/18/2024 urina lysis , dipst ick Ketone Negati ve Not Available In-Office Order Internal Use Only DO Not Attach Compendium DO Not Attach Compendium, Do Not Delete/merge, [id number] 01/18/2024 13:14:03 01/18/20 24 01/18/2024 urina lysis , dipst ick Bilirubin Negati ve Not Available In-Office Order Internal Use Only DO Not Attach Compendium DO Not Attach Compendium, Do Not Delete/merge, [id number] 01/18/2024 13:14:01/18/20 24 01/18/2024 urina lysis , dipst ick Glucose Negati ve Not Available In-Office Order Internal Use Only DO Not Attach Compendium DO Not Attach Compendium, Do Not Delete/merge, [id number] 01/18/2024 13:14:01/18/20 24 01/18/2024 urina lysis , dipst ick Appearance Clear Not Available In-Offi ce Order Internal Use Only DO Not Attach Compendium DO Not Attach Compendium, Do Not Delete/merge, [id number] 01/18/2024 13:14:01/18/20 24 01/18/2024 urina lysis , dipst ick Color Yellow Not Available In-Office Order Internal Use Only DO Not Attach Compendium DO Not Attach Compendium, Do Not Delete/merge, [id number] 01/18/2024 13:14:01/19/20 24 01/19/2024 HPV MRNA E6/E7 HPV MRNA E6/E7 Negati ve negati ve APTIM A HPV assay detec ts 14 high risk HPV types (HPV 16,18 ,31,3 3,35, 39,45 ,51,5 2,56, 58,59 ,66,6 8). The assay is FDA appro alcon for testi ng ThinP rep liqui d Pap vials but not FDA appro alcon for detec ting HPV in SureP ath liqui d Pap speci mens. In-ho use valid ation has shown the assay can detec t [facility] [address] [place], [address] 01/24/2024 11:50:35 01/19/20 24 01/19/2024 THINP REP PAP TEST (IMAG ER), HPV SCREE N, REFLE X HPV 16,18 /45 report Report Final Gynec ologi leann Cytol ogy Repor t ----- ----- ----- ----- ----- ----- ----- ----- ----- ----- ----- ----- ThinP rep Pap Test, HPV Scree n, Refle x HPV Genot ype SPECI MEN ADEQU ACY: SATIS FACTO RY FOR EVALU ATION . INTER PRETA TION: NEGAT ALBERT FOR INTRA EPITH ELIAL LIDIA Palma OR YEMI BECK . Atrop hy Elect barry Mcnamara d: Ruddy Plascencia, CT, ASCP ----- ----- ----- ----- ----- ----- ----- ----- ----- ----- ----- ----- CLINI LEANN INFOR MATIO N: LMP: NG Clini leann Histo ry: NG Biops y Date: NG Speci men Sourc e: Cervi x, Endoc ervix Previ ous Pap Date: NG HPV RESUL TS: HPV mRNA E6/E7 [id number] Appro alcon: 01/19 Negat albert REF RANGE : Negat albert CPT Codes : 46982 ICD Codes : Z01.4 11 Not Available [facility] [address] [place], [address] 01/24/2024 11:50:39 04/29/19 18 04/10/2017 MAMMO jasvir digit al, bilat eral, w/ CAD No observ ation record ed. Not Available 04/16 16:51:07 09/08/19 19 09/07/2018 MAMMjasvir George digit al, bilat eral No observ ation record ed. [email or web address] [facility] (Department Of Radiology/Nelda ging) [address] [place] [address], [address], 09/09/2018 12:45:21 04/17/19 22 04/16/2021 MAMMO , scree lázaro, digit al, bilat eral No observ ation record ed. [email or web address] Not Available 2021 08:49:12 01/31/20 24 01/29/2024 mg mammo digit al scree lázaro W sasha bilat See Note [facility], a member of [employer] Patiashleigh t Name: TRINITY ADLER Date of : 1969 Reason for Exam: Breast cancer screen , avg risk, asympt omatic (Age => 39y) Exam Date: 2023 [id number] EST Report Status : Final Orderi ng Provid er: DARIUS WOOD PCP: NANCY VORA EXAM: MG MAMMO DIGITA L SCREEN ING W SAHSA BILAT EXAM DATE: 2023 1:59 PM HISTOR Y: Visit for screen ing mammog brandi COMPAR TANG: 2021, 019 and 018 TECHNI QUE: Bilate ral digita l breast tomosy nthesi s was perfor med in the CC and MLO projec tions. Comput er aided detect ion was employ ed. TISSUE DENSIT Y: A - The breast s are almost entire ly fatty. FINDIN GS: No suspic ious masses , groupe d microc alcifi cation s, or areas of maribel ectura l distor tion are seen. IMPRES CARLOS: No mammog raphic eviden ce of malign alejandro. BI-RAD S: 1 - NEGATI VE RECOMM ENDATI ON(S): Return to annual mammog era. The patien t will receiv e a patien t lay summar y regard ing their person al breast densit y per иван gusman guidel kris. Exam Locati on: The [facility], [address] [place] [address], [place], [address], [phone] Report review ed and signed by : Dr. Brayden Corbin on 2023 1:46 PM. Workst ation Name - [id number] ------ -- FINAL REPORT ------ -- Dictat ed By: Brayden Corbin i Dictat ed Date: 2023 13:45 ET Assign ed Physic demetrius: Brayden Corbin i Review ed and Electr onical ly Signed By: Brayden Corbin i Signed Date: 2023 13:46 ET Workst ation ID: [id number] Transc ribed By: Self Edit Transc ribed Date: 2023 13:45 ET [email or web address] [address], [address], 02/01/2024 08:41:42 Result Notes None recorded. Problems Name Problem SNOMED Code Status Onset Date Resolution Date Notes Provider Name and Address Organization Details Recorded Time [facility] [id number] Active 014 Not Available [facility] 08/15/2014 19:11:58 Problem Notes None recorded. Procedures Surgical History Date Name Laterality Status Provider Name and Address Organization Details Recorded Time 0 Date of Last Mammogram completed Lynn Villeda CT - [facility] 04/29/2021 14:26:52 9 Date of Last Pap Smear completed Marta Oleary CT - [facility] 09/06/2018 16:35:55 Imaging Results Imaging Date Name Status LastModified by Belen galicia Details LastModified Time 04/10/2017 MAMMO, screening, digital, bilateral, w/ CAD completed [email or web address] Information not available 04/30/2018 16:51:07 09/07/2018 MAMMO, screening, digital, bilateral completed [email or web address] [facility] (Department Of Radiology/Imaging ) [address] [place] [address], [address], 09/09/2018 12:45:21 04/16/2021 MAMMO, screening, digital, bilateral completed [email or web address] Information not available 04/17/2021 08:49:12 01/29/2024 mg mammo digital screening W sasha bilat completed [email or web address] [facility] [address] [facility], [place], [address], 02/01/2024 08:41:42 Procedure Notes None recorded. Medical Equipment None Reported. Allergies Allergen ID Allergen Name Allergen Category Reaction Reaction Severity Criticality Documentation Date Start Date Code Code System Note Provider Name and Address Organization Details Recorded Time 692407 No known allergy (situatio n) Not available Not available Not available Not available 08/15/20142013 25817 6003 SNOMED DO NOT USE DO NOT USE null, [place] - [facility] 9 13:04:18 No known drug allergies Medications Name Sig Start Date Stop Date Status Note LastModified by Organization Details LastModified Time fluoxetine 40 mg capsule 08/30 completed Not Available Not Available Not Available cyclobenzap rine 10 mg tablet TAKE 1 TABLET BY MOUTH THREE TIMES DAILY FOR 7 DAYS. MAY CAUSE DROWSINES S 04/29 completed Not Available Not Available Not Available atorvastati n 20 mg tablet 01/17 completed Not Available Not Available Not Available ropinirole 1 mg tablet 08/30 completed Not Available Not Available Not Available albuterol sulfate 2.5 mg/3 mL (0.083 %) solution for nebulizatio n INHALE 1 VIAL VIA NEBULIZER EVERY 4 HOURS NEEDED FOR WHEEZING active Not Available Not Available No t Available cetirizine 10 mg tablet 01/17 completed Not Available Not Available Not Available azithromyci n 250 mg tablet 08/30 completed Not Available Not Available Not Available ibuprofen 800 mg tablet TAKE 1 TABLET BY MOUTH THREE TIMES DAILY NEEDED FOR PAIN active Not Available Not Available No t Available prednisone 20 mg tablet active Not Available Not Available Not Available dextroamphe tamine-amph etamine 10 mg tablet TAKE 3 TABLETS BY MOUTH DAILY 01/17 completed Not Available Not Available Not Available propranolol ER 60 mg capsule,24 hr,extended release 04/29 completed Not Available Not Available Not Available ciprofloxac in 250 mg tablet 08/30 completed Not Available Not Available Not Available quetiapine 100 mg tablet TAKE 1 TABLET BY MOUTH DAILY AT BEDTIME 01/17 completed Not Available Not Available Not Available lorazepam 0.5 mg tablet TAKE 1 TABLET BY MOUTH ONCE DAILY NEEDED FOR PANIC ATTACK active Not Available Not Available No t Available trazodone 100 mg tablet TAKE 2 TABLETS BY MOUTH DAILY AT BEDTIME active Not Available Not Available No t Available cephalexin 500 mg capsule 01/17 completed Not Available Not Available Not Available buspirone 10 mg tablet 04/29 completed Not Available Not Available Not Available polymyxin B sulfate 10,000 unit-trimet hoprim 1 mg/mL eye drops 04/29 completed Not Available Not Available Not Available Advair Diskus 250 mcg-50 mcg/dose powder for inhalation active Not Available Not Available N ot Available omeprazole 20 mg capsule,del ayed release 01/17 completed Not Available Not Available Not Available montelukast 10 mg tablet 01/17 completed Not Available Not Available Not Available lorazepam 1 mg tablet TAKE 1 TABLET BY MOUTH DAILY NEEDED FOR ANXIETY active Not Available Not Available No t Available albuterol sulfate HFA 90 mcg/actuati on aerosol inhaler INHALE 2 PUFFS BY MOUTH EVERY 4 HOURS NEEDED FOR WHEEZING OR SHORTNESS OF BREATH active Not Available Not Available No t Available dextroamphe tamine-amph etamine 5 mg tablet TAKE 1 TABLET BY MOUTH EVERY DAY WITH 20MG FOR A TOTAL OF 25MG. active Not Available Not Available No t Available naproxen 500 mg tablet TAKE 1 TABLET BY MOUTH TWICE DAILY FOR 10 DAYS NEEDED FOR PAIN 01/17 completed Not Available Not Available Not Available amoxicillin 875 mg-potassiu m clavulanate 125 mg tablet TAKE 1 TABLET BY MOUTH TWICE DAILY 01/17 completed Not Available Not Available Not Available bupropion HCl XL 150 mg 24 hr tablet, extended release TAKE 2 TABLETS BY MOUTH EVERY DAY active Not Available Not Available No t Available melatonin 1 tablet daily at bedtime active Not Available Not Available No t Available Fish Oil 1 tablet daily 01/17 completed Not Available Not Available Not Available folic acid 1 tablet daily active Not Available Not Available No t Available Vitamin D 1 tablet daily 01/17 completed Not Available Not Available Not Available Zyrtec 1 tablet daily 08/30 completed Not Available Not Available Not Available atomoxetine 100 mg capsule TAKE 1 CAPSULE BY MOUTH DAILY active Not Available Not Available No t Available quetiapine 50 mg tablet 01/17 completed Not Available Not Available Not Available vitamin B comp and C no.3 active Not Available Not Available Not Available Prilosec 10 mg oral suspension, delayed release Take 2 packets every day by oral route. 08/30 completed Not Available Not Available Not Available naloxone 4 mg/actuatio n nasal spray USE 1 SPRAY INSIDE NOSE ONCE NEEDED FOR UP TO 1 DOSE 01/17 completed Not Available Not Available Not Available Vitals Date Recorded Body height Body mass index (BMI) Body weight Systolic blood pressure Diastolic blood pressure Provider Name and Address Organization Details Last Updated DateTime 04/27/2017 166.37 cm 41 kg/m2 162169.0 9 g 120 mm[Hg] 70 mm[Hg] Amelia Michelle [facility] 8 14:41:53 Date Recorded Body height Body mass index (BMI) Body weight Systolic blood pressure Diastolic blood pressure Provider Name and Address Organization Details Last Updated DateTime 03/29/2018 166.37 cm 40 kg/m2 467067.5 4 g 120 mm[Hg] 80 mm[Hg] DO NOT USE DO NOT USE [facility] 9 13:06:00 Date Recorded Body height Body mass index (BMI) Body weight Systolic blood pressure Diastolic blood pressure Provider Name and Address Organization Details Last Updated DateTime 08/30/2018 166.37 cm 41.8 kg/m2 762055.0 5 g 118 mm[Hg] 80 mm[Hg] DO NOT USE DO NOT USE [facility] 9 14:43:50 Date Recorded Body weight Body mass index (BMI) Body height Systolic blood pressure Diastolic blood pressure Provider Name and Address Organization Details Last Updated DateTime 04/29/2021 854852.2 5 g 37.7 kg/m2 166.37 cm 122 mm[Hg] 68 mm[Hg] Lynn Villeda [facility] 2 14:42:16 Date Recorded Body height Body mass index (BMI) Body weight Systolic blood pressure Diastolic blood pressure Provider Name and Address Organization Details Last Updated DateTime 01/18/2024 165.1 cm 32.8 kg/m2 21831.7 g 124 mm[Hg] 84 mm[Hg] Shamir Schilling [facility] 13:40:09 Social History Question Answer Notes LastModified by Organizat ion Details LastModified Time Tobacco Smoking Status Never Smoker Amelia Michelle tomas, [facility] 04/27/2017 14:47:11 What Is Your Level Of Alcohol Consumption? Occasional [email or web address] Information not available 08/30/2018 Is Blood Transfusion Acceptable In An Emergency? Yes [email or web address] Information not available 04/27/2017 In The 14 Days Before Symptom Onset, Have You Had Close Contact With A Laboratory-confirm ed COVID-19 While That Case Was Ill? No Information n ot available 04/29/2021 In The 14 Days Before Symptom Onset, Have You Had Close Contact With A Person Who Is Under Investigation For COVID-19 While That Person Was Ill? No Information not available 04/29/2021 Have You Been To An Area Known To Be High Risk For COVID-19? No Information not available 04/29/2021 Do You Reside In Or Have You Traveled To An Area Where Ebola Virus Transmission Is Active? No [email or web address] Information not available 04/27/2017 Have There Been Any Changes To Your Family Or Social Situation? No [email or web address] Information no t available 04/27/2017 Do You Have Any Children? Yes [email or web address] Information not available 04/27/2017 Does Your Partner Physically Hurt You Or Threaten To Hurt You? No [email or web address] Information not available 04/27/2017 Has Your Partner Forced You To Have Sex Or Perform Sex Acts When You Did Not Want To? No [email or web address] Information not available 04/27/2017 Does Your Partner Insult, Scream At Or Talk Down To You? No Information not available 04/27/2017 Does Your Partner Control You Or Any Part Of Your Life? No [email or web address] Information n ot available 04/27/2017 Are You Afraid Of Your Partner? No Information not available 04/27/2017 Drug Use? No [email or web address] Information n ot available 04/27/2017 Do You Feel Safe At Home? Yes [email or web address] Information not available 04/27/2017 What Was The Date Of Your Most Recent Tobacco Screening? 01/18/2024 Information not available 01/18/2024 How Many Children Do You Have? 1 [email or web address] Information not available 04/27/2017 Do You Use Protection During Sex? No Information not available 04/29/2021 Are You Sexually Active? Yes Information not available 04/29/2021 General Stress Level Low [email or web address] Information not available 04/27/2017 Do You Feel Stressed (tense, Restless, Nervous, Or Anxious, Or Unable To Sleep At Night)? [id number] Information not available 04/29/2021 Have You Recently Traveled Abroad? No Information not available 04/29/2021 Do You Have Symptoms Associated With Zika Virus (fever, Rash, Joint Pain, Or Conjunctivitis)? No [email or web address] Information not available 04/27/2017 Have You Recently (within The Last 12 Weeks, Or During A Current ) Traveled To Or Lived In A Zika-affected Area? No Information not available 04/27/2017 Sex: Unknown Functional Status Question Answer Note LastModified by Organization D etails LastModified Time What is your exercise level? None [email or web address] Information not available 04/27/2017 Mental Status Question Answer Note LastModified by Organization D etails LastModified Time Do you have difficulty concentrating, remembering or making decisions? No [email or web address] Information no t available 04/27/2017 Family History Relationship Description Onset Age of this Age Resolved Age Notes LastModified by Organization Details LastModified Time Father Malignant tumor of kidney 54 [email or web address] Not available 04/16 14:45:21 Mother Malignant tumor of breast 54 [email or web address] Not available 2018 14:36:30 Maternal Grandmother Diabetes mellitus [email or web address] Not available 04/16 14:46:01 Medical History Condition Response Other N *No Diseases or Conditions N Blood clots N Breast Cancer N Benign breast disease N Colon cancer N Lung Disease N Depression N Defects or Inherited Disease N Anesthesia Complications N Headaches/Migraines N Have you ever been on isolation N Anxiety Disorder N Arthritis N HSV N Infertility N Abnormal pap Y Interstitial Cystitis N Acid Reflux (GERD) N Cancer N Stroke N Endometriosis N Fibromyalgia N Spina Bifida N HIV N Heart Problems N Sexual Dysfunction N Autoimmune disorder N Kidney or Bladder Problems N Thyroid Problems N GI Problems N Eating Disorder N Anemia N Multiple Sclerosis N Psychiatric Illness N Ovarian Cancer N Diabetes N Blood Transfusions N Bladder disease N History of MRSA N Abnormal Uterine Bleeding N Hyperlipidemia N BrCa positive N Diverticulitis N Abuse/Domestic Violence N Asthma N Hepatitis N Hypertension N Osteoporosis N Thrombophilias N Gynecological History Statement/Question Response Benign Breast Disease N Flow Moderate Date of Last Mammogram 04/16/2019 Date of LMP 05/14/2017 Breast Biopsy N IPV Screen Done 01/18/2024 Post Menopausal Bleeding N STIs/STDs N PID N Cervical Cancer N History of Endometrial Biopsy? N BrCa gene tested? N If Post Menopausal, Age at Menopause 44 Ovarian Cancer N Breast Cancer N Bladder Problems N Abnormal Uterine Bleeding N Last HPV Result Negative Abnormal Pap Y Infertility N Breast Ultrasound N Sexual Orientation heterosexual Duration of Flow (days) 7 Endometriosis N Age at Menarche 12 Age at First Child 20 Fibroids N Uterine Cancer N Current Control Method Menopause Frequency of Cycle (Q days) 28 Sexually Active? Y Sexual Problems? N Date of Last Pap Smear 08/30/2018 Hormone Replacement Therapy N Obstetrics History GPAL:G 3 P 3 0 0 3 Type Value Full Term 3 Living 3 Total 3 Immunizations Vaccine Type Date Status Note Provider Nam e and Address Organization Details Recorded Time Influenza, split virus, quadrivalent, PF 04/29/2021 completed SANTOSH STOKES MD 175 [facility], [address] [place] [address], [phone], [facility] 04/29/2021 15:30:12 Influenza, split virus, trivalent, PF 01/18/2024 completed SANTOSH STOKES MD 175 [facility], [address] [place] [address], [phone], [facility] 01/18/2024 14:12:43 COVID-19, mRNA, LNP-S, PF, 100 mcg/0.5mL dose or 50 mcg/0.25mL dose 06/02/2020 [facility] 13:03:34 COVID-19, mRNA, LNP-S, PF, 100 mcg/0.5mL dose or 50 mcg/0.25mL dose 07/10/2020 [facility] 01/18/2024 13:03:34 COVID-19, mRNA, LNP-S, PF, 100 mcg/0.5mL dose or 50 mcg/0.25mL dose 02/15/2021 completed Shamir Schilling null, [place] - [facility] 01/18/2024 13:03:34 Past Encounters Encounter ID Performer Location Encounter Start Date Encounter Closed Date Diagnosis/Indication Diagnosis SNOMED-CT Code Diagnosis ICD10 Code [id number] [facility] [address] [place] [address] 09/19/2013 00:00:00 [id number] [facility] [address] [place] [address] 11/04/2013 00:00:00 [id number] SANTOSH STOKES MD [facility] [place] [address] 04/27/2017 14:18:30 04/27/2017 15:20:21 Gynecologic examination 88331907 Z01.419 Screening mammography 24 000752 Z12.31 Screening for malignant neoplasm of rectum 142011825 Z12.12 Body mass index 40+ - severely obese 252588073 Z68.41 [id number] SANTOSH STOKES MD [facility] [address] [place] [address] 03/29/2018 12:58:30 03/29/2018 15:00:36 Atypical squamous cells of undetermined significance on cervical Papanicolaou smear 525769196 R87.610 Oligomenorrhea 64587474 N91.5 Body mass index 40+ - severely obese 638524283 Z68.41 [id number] SANTOSH STOKES MD [facility] [address] [place] [address] 08/30/2018 14:24:17 08/31/2018 10:51:22 Gynecologic examination 05337289 Z01.419 Menopause present 742167 006 N95.1 Screening mammography 24 581909 Z12.31 Screening for malignant neoplasm of rectum 527459352 Z12.12 Depression screening 171 867189 Z13.31 Body mass index 40+ - severely obese 795705780 Z68.41 [id number] SANTOSH STOKES MD [facility] [address] [place] [address] 04/29/2021 14:17:56 04/29/2021 15:26:59 Gynecologic examination 17145584 Z01.419 Menopause present 386414 006 N95.1 Screening mammography 24 833359 Z12.31 Screening for malignant neoplasm of rectum 773128972 Z12.12 Depression screening 171 531069 Z13.31 Influenza vaccine needed 5885023628 106 Z23 [id number] SANTOSH STOKES MD [facility] [address] [place] [address] 01/18/2024 12:54:46 01/18/2024 14:32:44 Gynecologic examination 20126349 Z01.411 Menopause present 180095 006 N95.1 Screening mammography 24 095749 Z12.31 Screening for malignant neoplasm of rectum 861504559 Z12.12 Depression screening 171 474369 Z13.31 Administra tion of influenza vaccine 29716275 Z23 Superficia l pain on intercourse 011639588 N94.11 Health Concerns Section Related Observation LastModified by Organization Detai ls LastModified Time None Recorded Concern Status LastModified by Organization Details LastModified Time None Recorded Advance Directives Directive None Recorded Payers Encounter Date Sequence Insurance Name Policy Number Policy Shukla Covered Member ID Shukla Member ID Guarantor Name 04/27/2017 1 [place] - DOS PRIOR TO 2024 - [employer] - [place] ( - PPO[facility] [id number] 03/29/2018 1 [place] - DOS PRIOR TO 2024 - [employer] - [place] ( - PPO) [facility] [id number] [facility] 08/30/2018 1 [place] - DOS PRIOR TO 2024 - [employer] - [place] ( - PPO) [facility] [id number] [facility] 04/29/2021 1 [place] - DOS PRIOR TO 2024 - [employer] - [place] ( - PPO) [employer] [facility] [id number] [facility] 01/18/2024 1 [place] - DOS PRIOR TO 2024 - [employer] - [place] ( - PPO) [facility] [id number] [facility] Notes Date Note Type Note Provider Name and Address Organization Details Recorded Time 04/27/2017 text/html [facility] Annual GYNRe ported bypatient.History:no gynecologic complaints; no change in interval history Menstrual cycle:postmenopausal Urinary symptoms:No hematuria; No incontinence Vulva:No genital lesion Vagina:Normal vaginal discharge Breast:No breast pain; No breast lump; No nipple discharge Current Contraception:Satisfied with current contraception; Monogamous relationship; menopausal Sexual activity:sexually active yes; No sexual complaints; No pain during intercourse; Normal libido Menopausal symptoms:Normal vaginal lubrication;Hot flashes Psychological symptoms:No depression; No anxiety; No PMDD Preventive measures:Encourage self breast examination; Encourage regular exercise; Encourage no tobacco use; Encourage regular mammograms starting age 40; Followed with Q3 year pap smear and high risk HPV typing SANTOSH STOKES MD [address] [place] [address], [phone], [facility] 04/27/2017 15:19:38 03/29/2018 text/html [facility] AmenorrheaRe ported bypatient.Onset/Timing: no menses for 4-6 months Quality:decreased frequency Severity:mild Context:perimenopausal Modifying Factors:age Associated Symptoms:no breast tenderness; no nausea; no vomiting; no vaginal dryness; no new hair growth; no hair loss; no night sweats; no headaches; no new visual changes;hot flashes patient is here today for a repeat pap due to ASCUS SANTOSH STOKES MD [address], [address], [facility] 03/29/2018 13:35:36 08/30/2018 text/html [facility] Annual GYNRe ported bypatient.History:no gynecologic complaints Menstrual cycle:Normal menses Urinary symptoms:No hematuria; No incontinence Vulva:No genital lesion Vagina:Normal vaginal discharge Breast:No breast pain; No breast lump; No nipple discharge Current Contraception:Satisfied with current contraception Sexual activity:sexually active yes; No sexual complaints; No pain during intercourse; Normal libido Psychological symptoms:No depression; No anxiety; No PMDD Preventive measures:Encourage self breast examination; Encourage regular exercise; Encourage no tobacco use; Encourage regular mammograms starting age 40; Followed with Q3 year pap smear and high risk HPV typing SANTOSH STOKES MD [address], [address], [facility] 08/30/2018 15:17:06 04/29/2021 text/html [facility] Annual GYNRe ported bypatient.History:no gynecologic complaints Menstrual cycle:Normal menses Urinary symptoms:No hematuria; No incontinence Vulva:No genital lesion Vagina:Normal vaginal discharge Breast:No breast pain; No breast lump; No nipple discharge Current Contraception:Satisfied with current contraception Sexual activity:sexually active yes; No sexual complaints; No pain during intercourse; Normal libido Psychological symptoms:No depression; No anxiety; No PMDD Preventive measures:Encourage self breast examination; Encourage regular exercise; Encourage no tobacco use; Encourage regular mammograms starting age 40; Followed with Q3 year pap smear and high risk HPV typing Pt here for annual target man examPap due this year SANTOSH STOKES MD [address], [phone], [facility] 04/29/2021 15:30:20 01/18/2024 text/html [facility] Annual GYNRe ported bypatient.History:no gynecologic complaints Menstrual cycle:Normal menses Urinary symptoms:No hematuria; No incontinence Vulva:No genital lesion Vagina:Normal vaginal discharge Breast:No breast pain; No breast lump; No nipple discharge Current Contraception:Satisfied with current contraception Sexual activity:sexually active yes ; No sexual complaints; No pain during intercourse; Normal libido Psychological symptoms:No depression; No anxiety; No PMDD Preventive measures:Encourage self breast examination; Encourage regular exercise; Encourage no tobacco use; Followed with pap smear and high risk HPV typing every 3 years; Encourage regular mammograms starting age 39 Pt here for annual target man examPap:04/30/21Mammo:04/16/21 SANTOSH STOKES MD [address], [address], [facility] 01/18/2024 14:12:51 OBGyn Episode Ob Episode Information Episode Created Date Number of Fetuses Patient Bloodtype Patient rh Status Prepregnancy Weight lbs Domestic Partner Domestic Partner Phone Father Name Emergency Operator Status 04/27/19 18 1 CLOSED Fetus Data First Name Last Name Admitted to NICU Weight (g) Sex Living Outcome Pediatric Complications Fetus ID Race Codes Race Delivery Type M Full Term [id number] Vaginal Delivery Rustam Calculation RUSTAM Calculation Method Initial Rustam Date Initial Exam Date Initial Exam Provider Initial Ultrasound Date Last Menstrual Period Date Ultra Sound Weeks Gestation Conception by IVF Embryo Age at Transfer Date of Transfer 0 Eighteen To Twenty Week Rustam Update Ultra Sound Date Fundal Height At Umbil Quickening Date Ultra Sound Latest Weeks Gestation Final Rustam Confirmed By Final Rustam Confirmed Date Final Rustam Date Ultra Sound Latest Days Gestation 0 0 Menstrual History Last Menstrual Date Menses Monthly On Bcp Conception Prior Menses Frequency Hcg Plus Date Menarche Onset Age Delivery Information Delivery Date Delivery Type Labor Anesthesia Weeks Gestation Incision Type Labor Labor Length Hrs Delivered By Post Complications Tubal Sterilization Discharge Date Comments 7 Discharge Information Feeding Method Contraceptive Method Maternal HG B and HCT Levels Ob Episode Information Episode Created Date Number of Fetuses Patient Bloodtype Patient rh Status Prepregnancy Weight lbs Domestic Partner Domestic Partner Phone Father Name Emergency Operator Status 04/27/19 18 1 CLOSED Fetus Data First Name Last Name Admitted to NICU Weight (g) Sex Living Outcome Pediatric Complications Fetus ID Race Codes Race Delivery Type 4535.92 M Full Term [id number] Vaginal Delivery Rustam Calculation RUSTAM Calculation Method Initial Rustam Date Initial Exam Date Initial Exam Provider Initial Ultrasound Date Last Menstrual Period Date Ultra Sound Weeks Gestation Conception by IVF Embryo Age at Transfer Date of Transfer 0 Eighteen To Twenty Week Rustam Update Ultra Sound Date Fundal Height At Umbil Quickening Date Ultra Sound Latest Weeks Gestation Final Rustam Confirmed By Final Rustam Confirmed Date Final Rustam Date Ultra Sound Latest Days Gestation 0 0 Menstrual History Last Menstrual Date Menses Monthly On Bcp Conception Prior Menses Frequency Hcg Plus Date Menarche Onset Age Delivery Information Delivery Date Delivery Type Labor Anesthesia Weeks Gestation Incision Type Labor Labor Length Hrs Delivered By Post Complications Tubal Sterilization Discharge Date Comments 3 Discharge Information Feeding Method Contraceptive Method Maternal HG B and HCT Levels Ob Episode Information Episode Created Date Number of Fetuses Patient Bloodtype Patient rh Status Prepregnancy Weight lbs Domestic Partner Domestic Partner Phone Father Name Emergency Operator Status 04/27/19 18 1 CLOSED Fetus Data First Name Last Name Admitted to NICU Weight (g) Sex Living Outcome Pediatric Complications Fetus ID Race Codes Race Delivery Type F Full Term [id number] Vaginal Delivery Rustam Calculation RUSTAM Calculation Method Initial Rustam Date Initial Exam Date Initial Exam Provider Initial Ultrasound Date Last Menstrual Period Date Ultra Sound Weeks Gestation Conception by IVF Embryo Age at Transfer Date of Transfer 0 Eighteen To Twenty Week Rustam Update Ultra Sound Date Fundal Height At Umbil Quickening Date Ultra Sound Latest Weeks Gestation Final Rustam Confirmed By Final Rustam Confirmed Date Final Rustam Date Ultra Sound Latest Days Gestation 0 0 Menstrual History Last Menstrual Date Menses Monthly On Bcp Conception Prior Menses Frequency Hcg Plus Date Menarche Onset Age Delivery Information Delivery Date Delivery Type Labor Anesthesia Weeks Gestation Incision Type Labor Labor Length Hrs Delivered By Post Complications Tubal Sterilization Discharge Date Comments 0 Discharge Information Feeding Method Contraceptive Method Maternal HG B and HCT Levels
--- OUTSIDE RECORDS SUMMARY | 2024-02-25 08:23 | XMS_ITS | Continuity of Care Document ---
Author Organization [place] - [facility], [facility] Address [address] [place] [address] Care Team Providers Care Lawyers Name Role Phone WENDY CLIFTON Primary Care Provider Assessment No assessment recorded. Plan of Treatment Reminders Order Date Submit Date Provider Last Modified By Organization Details Last Modified Time Details Appointments ANNUAL FUNDING COORDINATOR 20 2024 01:00P M Lori Stokes MD Not available Not available Not available Lab urinalysi s, dipstick 2023 [email or web address] In-Office Order, Internal Use Only DO Not Attach Compendium DO Not Attach Compendium, Do Not Delete/merge, [id number] 01/18/2024 14:12:43 pap, IG + HPV 2023 [facility], [address] [place] [address], 01/24/2024 11:50:39 CBC w/ auto diff 2023 [facility], [address], [place], 01/18/2024 14:12:57 lipid panel, serum 2023 [facility], [address], [place], 01/18/2024 14:12:57 CMP, serum or plasma 2023 [facility], [address], [place], 01/18/2024 14:12:57 vitamin D, 25-hydrox y, total, serum 2023 [facility], [address] [place], [address] 01/18/2024 14:12:57 TSH, serum or plasma 2023 [facility], [address] [place], [id number] 02/17/2024 04:05:00 hemoglobi n, gastroint estinal, stool 2023 [email or web address] In-Office Order, Internal Use Only DO Not Attach Compendium DO Not Attach Compendium, Do Not Delete/merge, [id number] 01/18/2024 14:12:43 Referral None recorded. Procedures None recorded. Surgeries None recorded. Imaging MAMMO, screening , digital, bilateral - If dense breasts (>50%), please proceed with bilateral breast screening ultrasoun d. 2023 [facility], [address] [place] [address], [address], 01/18/2024 15:05:21 Medication Orders None recorded. Patient TargetsNo targets recorded. Patient InstructionsNo instructions recorded. Reason for Referral None Reported. Results Created Date Observation Date Name Description Value Unit Range Abnormal Flag Note LastModifiedBy Organization Detail LastModifiedTime 01/18/2001/18/2024 hemog lobin , gastr ointe anil l, stool Occult Blood negati ve Not Available In-Office Order Internal Use Only DO Not Attach Compendium DO Not Attach Compendium, Do Not Delete/merge, [id number] 01/18/2024 13:14:03 01/18/2001/18/2024 urina lysis , dipst ick Interpretati on negati ve Not Available In-Office Order Internal Use Only DO Not Attach Compendium DO Not Attach Compendium, Do Not Delete/merge, [id number] 01/18/2024 13:14:03 01/18/2001/18/2024 urina lysis , dipst ick Leukocytes Negati ve Not Available In-Office Order Internal Use Only DO Not Attach Compendium DO Not Attach Compendium, Do Not Delete/merge, [id number] 01/18/2024 13:14:03 01/18/20 24 01/18/2024 urina lysis , dipst ick Nitrite negati ve Not Available In-Office Order Internal Use Only DO Not Attach Compendium DO Not Attach Compendium, Do Not Delete/merge, [id number] 01/18/2024 13:14:03 01/18/20 24 01/18/2024 urina lysis , dipst ick Urobilinogen Normal : 0.2 mg/dl Not Available In-Office Order Internal Use Only DO Not Attach Compendium DO Not Attach Compendium, Do Not Delete/merge, [id number] 01/18/2024 13:14:03 01/18/20 24 01/18/2024 urina lysis , dipst ick Protein Negati ve Not Available In-Office Order Internal Use Only DO Not Attach Compendium DO Not Attach Compendium, Do Not Delete/merge, [id number] 01/18/2024 13:14:03 01/18/20 24 01/18/2024 urina lysis , dipst ick pH 5.0 Not Available In-Office Order Internal Use Only DO Not Attach Compendium DO Not Attach Compendium, Do Not Delete/merge, [id number] 01/18/2024 13:14:03 01/18/20 24 01/18/2024 urina lysis , dipst ick Blood Negati ve Not Available In-Office Order Internal Use Only DO Not Attach Compendium DO Not Attach Compendium, Do Not Delete/merge, [id number] 01/18/2024 13:14:03 01/18/20 24 01/18/2024 urina lysis , dipst ick Specific [place] 1.000 Not Available In-Off ice Order Internal Use Only DO Not Attach Compendium DO Not Attach Compendium, Do Not Delete/merge, [id number] 01/18/2024 13:14:03 01/18/20 24 01/18/2024 urina lysis , dipst ick Ketone Negati ve Not Available In-Office Order Internal Use Only DO Not Attach Compendium DO Not Attach Compendium, Do Not Delete/merge, [id number] 01/18/2024 13:14:03 01/18/20 24 01/18/2024 urina lysis , dipst ick Bilirubin Negati ve Not Available In-Office Order Internal Use Only DO Not Attach Compendium DO Not Attach Compendium, Do Not Delete/merge, [id number] 01/18/2024 13:14:03 01/18/20 24 01/18/2024 urina lysis , dipst ick Glucose Negati ve Not Available In-Office Order Internal Use Only DO Not Attach Compendium DO Not Attach Compendium, Do Not Delete/merge, [id number] 01/18/2024 13:14:03 01/18/20 24 01/18/2024 urina lysis , dipst ick Appearance Clear Not Available In-Offi ce Order Internal Use Only DO Not Attach Compendium DO Not Attach Compendium, Do Not Delete/merge, [id number] 01/18/2024 13:14:03 01/18/20 24 01/18/2024 urina lysis , dipst ick Color Yellow Not Available In-Office Order Internal Use Only DO Not Attach Compendium DO Not Attach Compendium, Do Not Delete/merge, [id number] 01/18/2024 13:14:03 01/31/20 24 01/29/2024 mg mammo digit al scree lázaro W sasha bilat See Note [facility], a member of [employer] [facility] t Name: JOEY CORTES Date of : 1969 Reason for Exam: Breast cancer screen , avg risk, asympt omatic (Age => 39y) Exam Date: 2023 [id number] EST Report Status : Final Orderi ng [facility] er: DARIUS WOOD PCP: NANCY VORA EXAM: MG MAMMO DIGITA L SCREEN ING W SASHA BILAT EXAM DATE: 2023 1:59 PM HISTOR [...] person al breast densit y per иван t bethel l guidel kris. Exam Locati on: [facility], [address] [place] [address], [place], [address], [phone] Report review ed and signed by : [...] Transc ribed Date: 2023 13:45 ET [email or web address], [address], 02/01/2024 08:41:42 Result Notes None recorded. Problems Name Problem SNOMED Code Status Onset Date Resolution Date Notes Provider Name and Address Organization Details Recorded Time Asthma 952709196 Active 014 Not Available [employer] 08/15/2014 19:11:58 Problem Notes None recorded. Procedures Surgical History Date Name Laterality Status Provider Name and Address Organization Details Recorded Time 0 Date of Last Mammogram completed Lynn Villeda [place] - [facility] 04/29/2021 14:26:52 9 Date of Last Pap Smear completed Marta Oleary [place] - [facility] 09/06/2018 16:35:55 Imaging Results None recorded. Procedure Notes None recorded. Medical Equipment None Reported. Allergies Allergen ID Allergen Name Allergen Category Reaction Reaction Severity Criticality Documentation Date Start Date Code Code System Note Provider Name and Address Organization Details Recorded Time 284341 No known allergy (situatio n) Not available Not available Not available Not available 08/15/20142013 50740 6003 SNOMED DO NOT USE DO NOT USE null, [place] - [facility] 9 13:04:18 No known drug allergies Medications [...] Updated DateTime 01/18/2024 165.1 cm 32.8 kg/m2 35680.7 g 124 mm[Hg] 84 mm[Hg] Shamir Schilling [place] - [facility] 13:40:09 Social History Question Answer Notes LastModified by Organizat ion Details LastModified Time Tobacco Smoking Status Never Smoker Amelia marin, [place] - [facility] 04/27/2017 14:47:11 What Is Your Level Of Alcohol Consumption? Occasional [email or web address] Information not available 08/30/2018 Is Blood Transfusion Acceptable In An Emergency? Yes [email or web address] Information not available 04/27/2017 In The 14 [...] Where Ebola Virus Transmission Is Active? No [email or web address] Information not available 04/27/2017 Have There Been Any Changes To Your Family Or Social Situation? No [email or web address] Information no t available 04/27/2017 Do You Have Any Children? Yes [email or web address] Information not available 04/27/2017 Does Your Partner Physically Hurt You Or Threaten To Hurt You? No [email or web address] Information not available 04/27/2017 Has Your Partner Forced You To Have Sex Or Perform Sex Acts When You Did Not Want To? No [email or web address] Information not available 04/27/2017 Does Your Partner Insult, Scream At Or Talk Down To You? No [email or web address] Information not available 04/27/2017 Does Your Partner Control You Or Any Part Of Your Life? No [email or web address] Information n ot available 04/27/2017 Are You Afraid Of Your Partner? No [email or web address] Information not available 04/27/2017 Drug Use? No [email or web address] Information n ot available 04/27/2017 Do You Feel Safe At Home? Yes [email or web address] Information not available 04/27/2017 What Was The Date Of Your Most Recent Tobacco Screening? 01/18/2024 [email or web address] Information not available 01/18/2024 How Many Children Do You Have? 1 Information not available 04/27/2017 Do You Use Protection During Sex? No Information not available 04/29/2021 Are You Sexually Active? Yes Information not available 04/29/2021 General Stress Level Low [email or web address] Information not available 04/27/2017 Do You Feel Stressed (tense, Restless, Nervous, Or Anxious, Or Unable To Sleep At Night)? [id number] Information not available 04/29/2021 Have You Recently Traveled Abroad? No Information not available 04/29/2021 Do You Have Symptoms Associated With Zika Virus (fever, Rash, Joint Pain, Or Conjunctivitis)? No [email or web address] Information not available 04/27/2017 Have You Recently (within The Last 12 Weeks, Or During A Current ) Traveled To Or Lived In A Zika-affected Area? No [email or web address] Information not available 04/27/2017 Sex: Unknown Functional Status Question Answer Note LastModified by Organization D etails LastModified Time What is your exercise level? None [email or web address] Information not available 04/27/2017 Mental Status Question Answer Note LastModified by Organization D etails LastModified Time Do you have difficulty concentrating, remembering or making decisions? No [email or web address] Information no t available 04/27/2017 Family History Relationship Description Onset Age of this Age Resolved Age Notes LastModified by Organization Details LastModified Time Father Malignant tumor of kidney 54 [email or web address] Not available 04/16 14:45:21 Mother Malignant tumor of breast 54 [email or web address] Not available 2018 14:36:30 Maternal Grandmother Diabetes mellitus [email or web address] Not available 04/16 14:46:01 Medical History Condition Response Other N *No Diseases or Conditions N Breast Cancer N Blood clots N Colon cancer N Benign breast disease N Depression N Lung Disease N Defects or Inherited Disease N Anesthesia Complications N Headaches/Migraines N Have you ever been on isolation N Anxiety Disorder N Arthritis N HSV N Infertility N Abnormal pap Y Interstitial Cystitis N Acid Reflux (GERD) N Cancer N Stroke N Endometriosis N Fibromyalgia N Spina Bifida N HIV N Heart Problems N Sexual Dysfunction N Autoimmune disorder N Thyroid Problems N Kidney or Bladder Problems N GI Problems N Eating Disorder [...] Immunizations Vaccine Type Date Status Note Provider Jus slaughter and Address Organization Details Recorded Time Influenza, split virus, quadrivalent, PF 04/29/2021 completed LORI STOKES MD [address] [facility], [address] [place], [address], [facility] 04/29/2021 15:30:12 Influenza, split virus, trivalent, PF 01/18/2024 completed LORI STOKES MD [address] [facility], [address], [place], [address], [facility] 01/18/2024 14:12:43 COVID-19, mRNA, LNP-S, PF, 100 mcg/0.5mL dose or 50 mcg/0.25mL dose 06/02/2020 completed Kiarelyn Schilling null, [place] - [facility] 01/18/2024 13:03:34 COVID-19, mRNA, LNP-S, PF, 100 mcg/0.5mL dose or 50 mcg/0.25mL dose 07/10/2020 completed Kiarelyn Schilling null, [place] - [facility] 01/18/2024 13:03:34 COVID-19, mRNA, LNP-S, PF, 100 mcg/0.5mL dose or 50 mcg/0.25mL dose 02/15/2021 completed Kiarelyn Schilling null, [place] - [facility] 01/18/2024 13:03:34 Past Encounters Encounter ID Performer Location Encounter Start Date Encounter Closed Date Diagnosis/Indication Diagnosis SNOMED-CT Code Diagnosis ICD10 Code [id number] LORI STOKES MD [facility] [address] [place] [address] 01/18/2024 12:54:46 01/18/2024 14:32:44 Gynecologic examination 12045409 Z01.411 Menopause present 163908 006 N95.1 Screening mammography 24 969144 Z12.31 Screening for malignant neoplasm of rectum 428504231 Z12.12 Depression screening 171 634528 Z13.31 Administra tion of influenza vaccine 77789714 Z23 Superficia l pain on intercourse 966761876 N94.11 Health Concerns Section Related Observation LastModified by Organization Detai ls LastModified Time None Recorded Concern Status LastModified by Organization Details LastModified Time None Recorded Payers Encounter Date Sequence Insurance Name Policy Number Policy Shukla Covered Member ID Shukla Member ID Guarantor Name 01/18/2024 1 [facility] - DOS PRIOR TO 2024 - [employer] - [employer] ( - PPO) Joey Cortes [id number] Joey Cortes Notes Date Note Type Note Provider Name and Address Organization Details Recorded Time 01/18/2024 text/html [facility] Annual GYNReported bypatient.History:n o gynecologic complaints Menstrual cycle:Normal menses Urinary symptoms:No hematuria; No incontinence Vulva:No genital lesion Vagina:Normal vaginal discharge Breast:No breast pain; No breast lump; No nipple discharge Current Contraception:Satis fied with current contraception Sexual activity:sexually active yes ; No sexual complaints; No pain during intercourse; Normal libido Psychological symptoms:No depression; No anxiety; No PMDD Preventive measures:Encourage self breast examination; Encourage regular exercise; Encourage no tobacco use; Followed with pap smear and high risk HPV typing every 3 years; Encourage regular mammograms starting age 39 Pt here for annual stock preparer examPap:04/30/21Mamm o:04/16/21 LORI STOKES MD [address] [place] [address], [address], [place], [address], [place] [facility] 01/18/2024 14:12:51 OBGyn Episode No OBEpisode recorded.
== END 2024-02-25 09:12 | disposition home or self-care (01) ==
PROVIDERS: PCP Physician Assistant; Visit Provider Physician Assistant
DX: Z00.00 Encounter for general adult medical examination without abnormal findings (principal); E78.2 Mixed hyperlipidemia; J45.30 Mild persistent asthma, uncomplicated; Z13.1 Encounter for screening for diabetes mellitus; F90.2 Attention-deficit hyperactivity disorder, combined type; F41.1 Generalized anxiety disorder; R39.9 Unspecified symptoms and signs involving the genitourinary system

== ENCOUNTER → 2024-02-25 08:14 | Outpatient (BNVA) | payer OTHER, SELFPAY | PROVIDERS: PCP Physician Assistant; Visit Provider Physician Assistant | DX: Z00.00 Encounter for general adult medical examination without abnormal findings (principal); E78.2 Mixed hyperlipidemia; J45.30 Mild persistent asthma, uncomplicated; F90.2 Attention-deficit hyperactivity disorder, combined type; F41.1 Generalized anxiety disorder | CPT/HCPCS: 81003; 96127; 96160 ==

== ENCOUNTER 2024-09-01 08:34 | Outpatient (AMB) | payer OTHER, SELFPAY ==
--- NOTE | 2024-09-01 08:40 | A.OFFPC_ITS ---
Vital Signs 09/01/24 08:42 Height 5 ft 5 in Weight 201 lb 8 oz BMI 33.5 BP 130/62 Blood Pressure Location Lt brachial Position Sitting Pulse 76 Pulse Source Pulse Oximeter Temp 97.1 F Temp Source Temporal Artery Scan Pulse Oximetry (%) 99 Oxygen Delivery Method Room Air Intake Visit Reasons: 6 month Intake Note: Patient is here to follow up on HLD, ADHD, Asthma, GERD. Planning Director Required: No Medical Education Coordinator: Not Required per policy Accompanied by: Self / Same As Patient Allergies atomoxetine Allergy (Intermediate, Verified 09/01/24 08:48) Dry mouth sulfamethoxazole (From Bactrim) Adverse Reaction (Severe, Verified 09/01/24 08:48) Diarrhea trimethoprim (From Bactrim) Adverse Reaction (Severe, Verified 09/01/24 08:48) Diarrhea Medication List - Last Reconciled 09/01/24 by Nikunj Patel PA-C albuterol sulfate 90 mcg/actuation (Ventolin HFA) 1 puff inhalation QID 90 days albuterol sulfate 2.5 mg (3 mL) inhalation Q6H PRN 90 days bupropion HCl XL 300 mg PO DAILY dextroamphetamine-amphetamine 25 mg ER (Adderall XR) 25 mg PO DAILY fluticasone propion-salmeterol 250-50 mcg/dose (Advair Diskus) 1 inh inhalation BID 90 days ibuprofen 800 mg PO TID PRN 30 days lorazepam 0.5 mg PO DAILY PRN montelukast 10 mg PO BEDTIME trazodone 200 mg PO BEDTIME PRN Tobacco use date assessed: 09/01/24 Dental Screening Dental Screen Date: 09/01/24 Did you have a dental visit in the last 12 months?: No Did you have a dental problem in the last 6 months where you did not have access to dental care?: No Was dental information given to patient?: Patient has dentist HPI 6 month HPI Details Trinity is a 54 y /o F here today for follow-up visit ? Pmhx significant for Depression, HTN, Anxiety, HLD. ? .. ? Depression/ Anxiety: Patient is working with a mental health therapist in his psychiatrist Also doing TMS and helping with her mental health. She is also now on Adderall for an ADHD diagnoses which has been helping her with her attention and focus, she was previously on Strattera which she felt was more effective for her ADHD symptoms. She mentioned she does not want to be on this medication for long- term due to risk of dependency. .. class 1 obesity: Patient does understand his BMI is over 30 will work on being more physically active and adapting to better eating habits to reduce her weight. ? REport her anxiety is still about the same, using lorazepam on a PRN basis though is looking to get off this medication .. HLD: Was on statin therapy previously though has ran out of this medication. Most recent lipid panel showing an elevated total cholesterol at 270 and LDL at 170. She was on cholesterol medication in the past though was able to get off due to dietary and lifestyle modifications. She is willing to restart cholesterol medication and work on lifestyle and dietary modifications. [facility] Medical History Screening for hypercholesterolemia Surgical History History of tonsillectomy History of foot surgery Family History Mother Substance use disorder Breast cancer Father Kidney malignancy Social History Housing: House Alcohol intake: current Patient Tobacco Use Status: Never used Tobacco Tobacco use type: Cigarette e-Cigarette/Vaping Use: Never Used Second Hand Smoke Exposure: No service: No Current occupational status: unemployed and retired Current occupational exposures/hazards: No Cognitive needs: No Hearing needs: No Vision needs: Yes (Glasses) Questionnaire PHQ-9 Over the last 2 weeks, how often have you been bothered by any of the following problems? 1. Little interest or pleasure in doing things: more than half the days 2. Feeling down, depressed, or hopeless: more than half the days 3. Trouble falling or staying asleep, or sleeping too much: more than half the days 4. Feeling tired or having little energy: several days 5. Poor appetite or overeating: several days 6. Feeling bad about yourself - or that you are a failure or have let yourself or your family down: several days 7. Trouble concentrating on things, such as reading the newspaper or watching television: several days 8. Moving or speaking so slowly that other people could have noticed. Or the opposite - being so fidgety or restless that you have been moving around a lot more than usual: not at all 9. Thoughts that you would be better off or of hurting yourself in some way: not at all Total score: 10 Depression Screening Interpretation: Positive Depression Screening Done: Yes 97473 - PHQ-9 Billing: Yes Source: Developed by Drs. Jak Posey, María Barron, Marino Gonzalez and colleagues, with an educational emmanuel from [email or web address]. Thrive Questionnaire Date Thrive assessed: 09/01/24 I am a: Patient What is your living situation today?: I have a steady place to live Within the past 12 months, did the food you bought not last and you didn't have the money to get more?: I choose not to answer this question Within the past 12 months, did you worry whether your food would run out before you got money to buy more?: I choose not to answer this question Do you have trouble paying for medicines?: I choose not to answer this question Do you have trouble getting transportation to medical appointments?: I choose not to answer this question Do you have trouble paying your heating and electricity bill?: I choose not to answer this question Do you have trouble taking care of your child, family member or friend?: I choose not to answer this question Do you have trouble with day-to-day activities such as bathing, preparing meals, shopping, managing finances, etc.?: I choose not to answer this question Are you currently unemployed and looking for a job?: I choose not to answer this question Are you interested in more education?: I choose not to answer this question Please select the resources that you would like help with: None Currently or been in a relationship where the following occur: I choose not to answer THRIVE Score: 0 AUDIT C Alcohol Use Questionnaire (AUDIT-C) 1. How often do you have a drink containing alcohol?: Never Total Score: 0 NYDIA-7 AMB Questionnaire NYDIA-7 Date NYDIA - 7 assessed: 09/01/24 Feeling nervous, anxious, or on edge: 2 = More than half the days Not being able to stop or control worryin = Not at all Worrying too much about different things: 0 = Not at all Trouble relaxin = Nearly every day Being so restless that it is hard to sit still: 3 = Nearly every day Becoming easily annoyed or irritable: 3 = Nearly every day Feeling afraid as if something awful might happen: 0 = Not at all Total NYDIA-7 score (0-4 normal; 5-9 mild; 10-14 moderate; 15-21 severe): 11 Source: Developed by Drs. Jak Posey, María aBrron, Marino Gonzalez and colleagues, with an educational emmanuel from [email or web address]. NYDIA-7 Assessment Billing NYDIA-7 Assessment Tool: NYDIA-7 Assessment 42172 Review of Systems Const Denies headache(s) Eyes Denies loss of vision ENT Denies vertigo, Denies dizziness, Denies headache(s) and Denies sore throat Card Denies chest pain, Denies leg edema and Denies lightheadedness Resp Denies cough, Denies hemoptysis and Denies wheezing GI Denies abdominal pain, Denies melena, Denies constipation, Denies diarrhea and Denies vomiting Denies urinary frequency, Denies dysuria and Denies urinary urgency Musc Denies arthralgias, Denies joint swelling, Denies numbness and Denies tingling Neuro Denies Abnormal speech present, Denies behavioral changes, Denies vertigo, Denies dizziness, Denies headache(s), Denies loss of vision, Denies memory loss, Denies numbness and Denies tingling Psych Denies anxiety, Denies behavioral changes, Denies depression, Denies memory loss and Denies panic attacks Reece/Lymph Denies easy bleeding and Denies easy bruising Aller/Immun Denies wheezing Physical exam (Primary Care) Vital Signs: Last Vital Signs Temp 97.1 F 09/01/24 08:42 Pulse 76 09/01/24 08:42 BP 130/62 09/01/24 08:42 Pulse Ox 99 09/01/24 08:42 Oxygen Delivery Method Room Air 09/01/24 08:42 BMI result Body Mass Index 33.5 Tobacco/Smoking Status: Tobacco use Status Tobacco use date assessed 09/01/24 09/01/24 08:48 Patient Tobacco Use Status Never used Tobacco 09/01/24 08:48 Tobacco use type Cigarette 09/01/24 08:48 e-Cigarette/Vaping Use Never Used 09/01/24 08:48 PHQ-9: PHQ-9 Score PHQ-9: Total score 10 09/01/24 08:48 Depression Screening Interpretation: Positive Thrive Assessment: Date of Thrive Assessment Date Thrive assessed 09/01/24 09/01/24 08:48 Currently or been in a relationship where the following occur: I choose not to answer Const General: healthy appearing, no acute distress, alert and awake Nutritional Appearance: well nourished Orientation/consciousness: oriented to person, oriented to place and oriented to time HENMT Ears: TM's normal bilaterally General nose exam: Normal nasal mucous membranes and turbinates present Eyes Conjunctivae: conjunctivae normal Sclerae: sclerae normal Pupils: Equal, round and reactive pupils present Neck Neck: Yes no lymphadenopathy and Yes no JVD Thyroid: Thyroid normal Carotids: no bruits Resp Effort & Inspection: normal respiratory effort and not tachypneic Auscultation: no crackles, no rales, no rhonchi and no wheezes Cardio Rate: regular rate Rhythm: regular rhythm Heart sounds: no murmurs and normal S1 and S2 GI Palpation (GI): Soft to palpation, nontender, no hepatomegaly and no splenomegaly Auscultation: normal bowel sounds Skin General skin exam: no rashes or lesions noted and dry skin Neuro General: oriented to person, oriented to place and oriented to time Cranial nerves: Yes Equal, round and reactive pupils present Speech: No Abnormal speech present Gait exam (Neuro): Normal gait present Motor exam (neuro): no tremor noted Extrem Right upper extremity: full ROM Left upper extremity: full ROM Right lower extremity: full ROM; no edema Left lower extremity: full ROM; no edema Psych Mental Status: mental status grossly normal Speech and movement: Normal speech and movement present Affect: normal affect Attitude: cooperative Thought process: Normal thought process present Coding Level of Care Code Est Pt Level 4 (00804) Diagnoses Mixed hyperlipidemia E78.2 Hyperlipidemia type: mixed hyperlipidemia Chronic pain of left knee M25.562; G89.29 Chronicity: chronic NYDIA (generalized anxiety disorder) F41.1 Attention deficit hyperactivity disorder (ADHD), combined type F90.2 Attention deficit-hyperactivity disorder type: combined inattentive- hyperactive Colon cancer screening Z12.11 Class 1 obesity E66.811 Additional Codes PHQ-9 - 61914 - PHQ-9 Billing: Yes ([id number]) NYDIA-7 Assessment Billing - NYDIA-7 Assessment Tool: NYDIA-7 Assessment 61800 ([id number]) Assessment & Plan Assessment & Plan (1) HLD (hyperlipidemia): Code(s): E78.5 - Hyperlipidemia, unspecified Category: Medical Qualifiers: Hyperlipidemia type: mixed hyperlipidemia Qualified Code(s): E78.2 - Mixed hyperlipidemia Plan: The patient has elevated cholesterol levels with total cholesterol at 266 mg/dL and LDL at 171 mg/dL. A low-dose atorvastatin has been prescribed to manage these levels, with a follow-up lab test scheduled in three months to assess efficacy and liver function. Goal LDL to be below 130 (2) Left knee pain: Code(s): M25.562 - Pain in left knee Category: Medical Qualifiers: Chronicity: chronic Qualified Code(s): M25.562 - Pain in left knee; G89.29 - Other chronic pain Plan: Patient reports a small injury to her left knee and does have palpable lump consistent with the bursa. She reports she has not been able to be physically active due to her knee pain and does understand she needs some kind of treatment to help her reduce her knee pain. She is considering seeing an orthopedic. (3) NYDIA (generalized anxiety disorder): Code(s): F41.1 - Generalized anxiety disorder Category: Medical Plan: Patient's NYDIA-7 score positive for anxiety which has been existing condition for her. She is currently in treatment with a mental health therapist and a psychiatrist whom are managing her mental health medications (4) ADHD: Code(s): F90.9 - Attention-deficit hyperactivity disorder, unspecified type Category: Medical Qualifiers: Attention deficit-hyperactivity disorder type: combined inattentive- hyperactive Qualified Code(s): F90.2 - Attention-deficit hyperactivity disorder, combined type Plan: The patient has ADHD and has been off Strattera for over a month due to an allergic reaction, which has impacted her weight management. (5) Colon cancer screening: Code(s): Z12.11 - Encounter for screening for malignant neoplasm of colon Category: Medical Plan: Patient is in need of a screening colonoscopy. She would like to be referred to [facility] in [place] (6) Class 1 obesity: Code(s): E66.811 - Obesity, class 1 Category: Medical Plan: Patient does understand her BMI is over 30 will work on being more physically active and adapting to better eating habits to reduce her weight Orders: Orders Lipid Panel Today E78.2 - Mixed hyperlipidemia UA CC w/rflx Micro + Cult Today R30.0 - Dysuria Complete Blood Count no Diff Today E78.2 - Mixed hyperlipidemia Comprehensive [place]. Panel Fast Today E78.2 - Mixed hyperlipidemia Vitamin D 25-OH Total Today E78.2 - Mixed hyperlipidemia Referrals Gastroenterology Referral Z12.11 - Encounter for screening for malignant neoplasm of colon Medications: New atorvastatin (Lipitor) 10 mg PO DAILY 90 tabs 1RF 90 days E78.2 - Mixed hyperlipidemia Refilled ibuprofen 800 mg PO TID PRN 90 tabs 1RF pain 30 days montelukast 10 mg PO BEDTIME 90 tabs 3RF J45.30 - Mild persistent asthma, uncomplicated
[2024-09-01 08:42] VITALS: BP 130/62; PULSE 76; TEMP 36.2; O2SAT 99; BMI 33.5
--- OUTSIDE RECORDS SUMMARY | 2024-09-01 08:54 | XMS_ITS | Clinical Summary ---
Author Organization [facility] Address [address] [place] [address] Care Team Providers Care Fountain Pen Turner Name Role Phone Nikunj Patel Primary Care Provider Allergies Active Allergy Reactions Criticality Noted Date Comments Sulfamethoxazole-Trimetho prim Diarrhea,Nausea And Vomiting 10/25/2023 Latex Itching Low 12/16/2018 Other Rash Low 02/16/2019 bandaids Medications Medication Sig Dispensed Refills Start Date End Date Status montelukast (SINGULAIR) 10 MG tablet Take 1 tablet (10 mg total) by mouth every night at bedtime. 0 Active omeprazole (PriLOSEC) 20 MG capsule Take 1 capsule (20 mg total) by mouth daily. 0 Active buPROPion (WELLBUTRIN XL) 150 MG 24 hr tablet Take 2 tablets (300 mg total) by mouth daily. 0 Active albuterol (PROVENTIL HFA;VENTOLIN HFA) 108 (90 Base) MCG/ACT inhaler Inhale 2 puffs into the lungs every 6 (six) hours as needed for wheezing. 0 Active fluticasone-salmeter ol (ADVAIR DISKUS) 250-50 MCG/DOSE DISKUS 1 inhalation. by Inhaled route daily. 0 Active atorvastatin (LIPITOR) tablet 20 mg Take 1 tablet (20 mg total) by mouth every night at bedtime. 0 03/05/2019 Active cetirizine (ZyrTEC) 10 MG tablet Take 1 tablet (10 mg total) by mouth every night at bedtime. 0 Active aspirin EC 325 MG tablet Take 1 tablet (325 mg total) by mouth daily. For DVT ppx 30 tablet 0 03/24/2019 Active ibuprofen (ADVIL,MOTRIN) 600 MG tablet Take 1 tablet (600 mg total) by mouth every 6 (six) hours as needed for pain. 30 tablet 0 03/24/2019 Active acetaminophen (TYLENOL) 500 MG tablet Take 2 tablets (1,000 mg total) by mouth every 8 (eight) hours. 60 tablet 0 03/24/2019 Active LORazepam (ATIVAN) 0.5 MG tablet Take 1 tablet (0.5 mg total) by mouth every 6 (six) hours as needed. 0 Active oxyCODONE (ROXICODONE) 5 MG immediate release tablet Take 1-2 tablets (5-10 mg total) by mouth every 4 (four) hours as needed for pain. 10 tablet 0 04/04/2019 Active sulfamethoxazole-tri methoprim (BACTRIM DS) 800-160 MG per tablet Take 1 tablet (160 mg of trimethoprim total) by mouth 2 (two) times a day. 28 tablet 0 04/15/2019 Active ibuprofen (ADVIL,MOTRIN) 600 MG tablet Take 1 tablet (600 mg total) by mouth every 6 (six) hours as needed for pain. 30 tablet 0 05/17/2019 Active atomoxetine (STRATTERA) 100 MG capsuleIndications:A ttention Deficit Hyperactivity Disorder Take 1 capsule (100 mg total) by mouth daily. 0 Active amphetamine-dextroam phetamine (ADDERALL) 10 MG tabletIndications:At tention Deficit Hyperactivity Disorder Take 3 tablets (30 mg total) by mouth daily. 0 Active cephalexin (KEFLEX) 500 MG capsuleIndications:U ncomplicated Urinary Tract Infection Take 1 capsule (500 mg total) by mouth 2 (two) times a day. 8 capsule 0 10/29/2023 Active QUEtiapine (SEROquel) 50 MG tabletIndications:Ag itation Take 1 tablet (50 mg total) by mouth 3 (three) times a day as needed (Agitation or Insomnia). 20 tablet 0 10/29/2023 Active Lactobacillus Acid-Pectin (Acidophilus/[place] Pectin) tabletIndications:Pr obiotic Take 1 tablet by mouth daily. 4 tablet 0 10/30/2023 Active naloxone (Narcan) 4 MG/0.1ML nasal sprayIndications:Opi oid Overdose spray or apply 4 mg inside Nose once as needed for up to 1 dose. 2 each 0 10/29/2023 Active Active Problems Problem Noted Date Diagnosed Date ADHD 10/26/2023 Adjustment disorder with mix ed disturbance of emotions and conduct 10/25/2023 Carpal tunnel syndrome, right 06/26/2021 Right wrist pain 06/26/2021 Family History Medical History Relation Name Comments Anesthesia problems Father Cancer Father Anesthesia problems Mother Arthritis Mother Breast cancer Mother Cancer Mother Breast cancer Paternal Aunt Relation Name Status Comments Father Mother Paternal Aunt Social History Tobacco Use Types Packs/Day Years Used Date Smoking Tobacco: Never Smokeless Tobacco: Never Alcohol Use Standard Drinks/Week Comments No 0 (1 standard drink = 0.6 oz pur e alcohol) Sex and Gender Information Value Date Recorded Sex Assigned at Female 09/07/2018 10:27 AM EDT Gender Identity Female 02/16/2019 9:29 AM EST Sexual Orientation Not on file Job Start Date Occupation Industry Not on file Not on file Not on file Last Filed Vital Signs Vital Sign Reading Time Taken Comments Blood Pressure 137/94 10/29/2023 7:57 AM EDT Pulse 86 10/29/2023 7:57 AM EDT Temperature 36.9 C (98.4 F) 10/29/2023 7:57 AM EDT Respiratory Rate 18 10/29/2023 7:57 AM EDT Oxygen Saturation 97% 10/29/2023 7:57 AM EDT Inhaled Oxygen Concentration - - Weight 83.9 kg (185 lb) 10/25/2023 3:10 PM EDT Height 165.1 cm (5' 5 ) 10/25/2023 3:10 PM EDT Body Mass Index 30.79 10/25/2023 3:10 PM EDT Plan of Treatment Health Maintenance Due Date Last Done Comments Hepatitis B Vaccines (1 of 3 - 3-dose series) 1969 Hepatitis C Screening 1969 COVID-19 Vaccine (#1) 1969 Depression Screening 1981 BMI Counseling 1987 Preventative Health Evaluation 1987 DTap / Tdap / Td (1 - Tdap) 02/14/1988 Cervical Cancer Screening (Pap Smear) 1990 Colon Cancer Screening (Colonoscopy) 2014 Shingrix-Zoster Vaccine (1 o f 2) 2019 Breast Cancer Screening (Mammogram) 04/16/2023 04/16/2021, 09/07/2018, 04/10/2017 Influenza Vaccine (Season Ended) 2024 04/29/2021 Pneumococcal Vaccine Aged Out No long er eligible based on patient's age to complete this topic RSV Ped < 20 months Aged Out No longe r eligible based on patient's age to complete this topic Medical Devices Implanted Type Area Auto Clutch Rebuilder Device Identifier Shelf Expiration Date Model / Serial / Lot Screw Cortex 2mm Sherine 20mml Full Thread Self-Tapping Crucifor - [id number] - [id number] Implanted:Qty: 2 on 02/18/2019 by Lesia Singh MD at [facility] and [facility] Right: [employer] 201.820 / / Screw Cortex 2mm Sherine 16mml Full Thread Self-Tapping Crucifor - [id number] - [id number] Implanted:Qty: 1 on 02/18/2019 by Lesia Singh MD at [facility] and [facility] Right: [employer] 201.816 / / Screw 28mm 2mm Selftap Stainless Steel Bone Cortical Hand - [id number] - [id number] Implanted:Qty: 2 on 02/18/2019 by Lesia Singh MD at [facility] and [facility] Right: [employer] 201.828 / / Explanted Type Area Auto Clutch Rebuilder Device Identifier Shelf Expiration Date Model / Serial / Lot Screw Cranio-Maxillof acial 2.0mm Sherine 12mml Cruciform Head Se - [id number] - [id number] Implanted:Qty: 1 Explanted:Qty: 1 on 02/18/2019 by Lesia Singh MD at [facility] and [facility] Right: [employer] 201.812 / / Screw 14mm 2mm 3.5mm Selftap Cruciform Recess Stainless - [id number] - [id number] Explanted:Qty: 1 on 02/18/2019 at [facility] and [facility] Right: [employer] 201.814 / / Synthes 2.0 Mm Screws Explanted:Qty: 2 on 04/15/2019 by Lesia Singh MD at [facility] and [facility] Right: Foot Advance Directives For more information, please contact: [phone] Documents on File Type Date Recorded Patient Scientist Engineer Expl anation Advance Directive and Living Will 04/10/2017 4:04 PM Latest Code Status on File Code Status Date Activated Date Inactivated Comments Full Code 10/25/2023 4:36 PM 10/29/2023 8:31 PM This code status was ascertained in the following way: per unit protocol. Care Teams Fountain Pen Turner Relationship Specialty Start Date End Date Nikunj Patel PA [address] [place] [phone] PCP - General Physician Mandolin Repairer 01/20/19
== END 2024-09-01 09:19 | disposition home or self-care (01) ==
PROVIDERS: PCP Physician Assistant; Visit Provider Physician Assistant
DX: E78.2 Mixed hyperlipidemia (principal); M25.562 Pain in left knee; Z68.33 Body mass index [BMI] 33.0-33.9, adult; E66.811 Obesity, class 1; G89.29 Other chronic pain; F41.1 Generalized anxiety disorder; F90.2 Attention-deficit hyperactivity disorder, combined type; Z12.11 Encounter for screening for malignant neoplasm of colon

== ENCOUNTER → 2024-09-01 08:34 | Outpatient (BNVA) | payer OTHER, SELFPAY | PROVIDERS: PCP Physician Assistant; Visit Provider Physician Assistant | DX: E78.2 Mixed hyperlipidemia (principal); M25.562 Pain in left knee; G89.29 Other chronic pain; F41.1 Generalized anxiety disorder; F90.2 Attention-deficit hyperactivity disorder, combined type; E66.811 Obesity, class 1; Z68.33 Body mass index [BMI] 33.0-33.9, adult; Z71.3 Dietary counseling and surveillance | CPT/HCPCS: 96127; 99212 ==